=== PATIENT | female | born 1995 | race Caucasian/White ===

== ENCOUNTER 2020-12-06 11:34 | Emergency (ER) | payer OTHER, SELFPAY ==
[2020-12-06 11:36] VITALS: BP 131/80; PULSE 130; RESP 18; TEMP 36.7; O2SAT 98; BMI 20.7
--- NOTE | 2020-12-06 12:54 | ED_ITS ---
HPI - Psych General Chief Complaint: Psychiatric Symptoms Stated Complaint: depression Time Seen by Provider: 12/06/20 12:37 Source: patient and family Mode of arrival: ambulatory Limitations: no limitations History of Present Illness HPI Narrative: 25-year-old female with a past medical history of ADHD, depression here with complaints of depression for months. She denies any SI or HI. She tells me she is followed by her psychiatrist and is on multiple medications for this. She does not feel like they are helping. She tells me she is here to change her medications. She tells me she has not restarted her p sychiatrist to let them know what was going on. Denies substance use, physical complaints. Here with family MD complaint: feels depressed Related Data Allergies Allergy/AdvReac Type Severity Reaction Status Date / Time latex AdvReac Rash Verified 12/06/20 11:40 Review of Systems Review of Systems: Yes all other systems are reviewed and are negative Constitutional: Constitutional: Reports no additional constitutional complaints, Denies body ache(s), Denies chills, Denies fever(s), Denies headache(s) and Denies weakness Eyes: Eyes: Reports no additional eye complaints and Denies change in vision ENT: Reports system reviewed and no additional complaints, except as documented, Denies dizziness, Denies headache(s), Denies nasal congestion, Denies nasal discharge and Denies neck pain Cardiovascular: Cardiovascular: Reports no additional cardiovascular c omplaints, Denies chest pain, Denies leg edema and Denies dyspnea Respiratory: Respiratory: Reports no additional respiratory complaints, Denies cough and Denies dyspnea Gastrointestinal: Gastrointestinal: Reports no additional gastrointestinal complaints, Denies abdominal pain, Denies diarrhea, Denies nausea and Denies vomiting Genitourinary: Genitourinary: Reports no additional female genitourinary complaints and Denies urinary incontinence Musculoskeletal: Musculoskeletal: Reports no additional musculoskeletal complaints, Denies back pain, Denies arthralgias, Denies joint swelling, Denies neck pain, Denies numbness and Denies tingling Integumentary/Breasts: Skin/Breast: Reports system reviewed and no additional complaints, except as docu and Denies rash Neurologic: Reports system reviewed and no additional complaints, except as documented, Denies Abnormal speech present, Denies dizziness, Denies headache(s), Denies numbness, Denies tingling and Denies weakness Psychiatric: Psychiatric: Reports depression, Denies hallucinations, Denies homicidal ideation and Denies suicidal ideation [facility] Past Medical History Attestation statement: The following information was validated with the patient. Source: old records reviewed and nursing notes reviewed Medical History No known health problems Social History Social History Alcohol intake: current Alcohol intake frequency: holidays/special occasions only Patient Tobacco Use Status: Never used Tobacco Use of substances other than those prescribed or required for medical reasons: No Advance Directives: No Advance Directives Information Provided: Yes Patient : No Physical Exam Vital Signs: Vital Signs: Last Vital Signs Temp 99.0 F 12/06/20 14:35 Pulse 105 H 12/06/20 14:35 Resp 17 12/06/20 14:35 BP 138/76 12/06/20 14:35 Pulse Ox 100 12/06/20 14:35 Body Mass Index 20.7 Const: General: cooperative, healthy appearing, comfortable and no acute distress Orientation/consciousness: patient oriented x3 Limitations: no limitations HENMT: Head: Yes normal to inspection Ears: hearing grossly normal bilaterally General nose exam: Normal external nose present Face and sinus: Yes normal facial exam Mouth: Normal oral and palatal mucosa present Throat: Yes posterior oropharynx normal Eyes: General: appearance normal, both eyes and all related structures Pupils: Equal, round and reactive pupils present Neck: Neck: Yes normal visual inspection Chest: Chest palpation & inspection: normal inspection of the chest Resp: Effort & Inspection: normal respiratory effort Auscultation: clear to auscultation bilaterally Cardio: Rate: tachycardic Rhythm: regular rhythm Peripheral pulses: Peripheral pulses 2+ throughout GI: Inspection: Yes normal to inspection Palpation (GI): Soft to palpation and nontender Auscultation: normal bowel sounds Back/Spine/Pelvis: Thoracic/Lumbar Spine: thoracic and lumbar spine normal to inspection Skin: General skin exam: no rashes or lesions noted Neuro: General: patient oriented x3, no focal motor deficits and normal sensation to monofilament Cranial nerves: Yes Equal, round and reactive pupils present Cognition (Neuro): normal cognition Speech: No Abnormal speech present Gait exam (Neuro): Normal gait present Motor exam (neuro): 5/5 motor strength present throughout Extrem: General: Yes normal to inspection, Yes no pedal edema and Yes no calf tenderness Course Course Course Narrative: 25-year-old female here with longstanding history of depression with complaints of depression and feeling like her medications are not helping. She tells me she is here because she wants to change her medications that she is currently taking although has not reach out to her psychiatrist who prescribes the medications. No suicidal thoughts. No physical complaints. No substance use. No concern for acute ingestion or trauma. I did explain to the patient that we typically do not change psychiatric medications from the emergency department. I did discuss the patient that she should reach out to her psychiatrist for follow-up appointment and discuss her concerns. I offered for her to speak to our certified social workers in health care here and she accepted this. 1600-patient spoke to [place] from care team. Plan to referral for partial hospitalization Discharge Plan Discharge Clinical Impression: Depression Patient Disposition: Home, Self-Care Instructions: Depression (ED) Additional Instructions: You have been referred to partial Referrals: Physician,None [Primary Care Provider] - 2 days
[2020-12-06 14:35] VITALS: BP 138/76; PULSE 105; RESP 17; TEMP 37.2; O2SAT 100
== END 2020-12-06 16:25 | disposition home or self-care (01) ==
PROVIDERS: Emergency Provider Emergency Medicine Emergency Medical Services
DX: F32.9 Major depressive disorder, single episode, unspecified (principal); F90.9 Attention-deficit hyperactivity disorder, unspecified type
CPT/HCPCS: 99284

== ENCOUNTER 2020-12-08 03:14 | Emergency (ER) | payer OTHER, SELFPAY ==
[2020-12-08 03:58] VITALS: BP 149/93; PULSE 90; RESP 18; TEMP 37.2; O2SAT 98; BMI 20.7
[2020-12-08 04:18] LABS: MANUAL DIFF FLAG NO
[2020-12-08 04:20] LABS: Basophils Absolute Auto 0.1 X10*3/uL (0.0-0.2); Basophils Percent Auto 1.4 % (0-2); Eosinophils Absolute Auto 0.1 X10*3/uL (0.0-0.4); Eosinophils Percent Auto 2.5 % (0-4); Hematocrit 38.8 % (37-47); Imm Gran Abs Auto 0.02 X10*3/uL (0.00-0.03); Imm Gran Pct Auto 0.4 % (0.0-0.4); Lymphocytes Absolute Auto 1.1 X10*3/uL (1.2-4.9); Lymphocytes Percent Auto 19.5 % (20-40); Mean Corpuscular HGB Conc 33.5 g/dl (31.0-35.0); Mean Corpuscular Hemoglobin 31.6 pg (27.0-33.0); Mean Corpuscular Volume 94.2 fL (80-98); Mean Platelet Volume 9.5 fL (9.4-12.3); Monocytes Absolute Auto 0.6 X10*3/uL (0.1-1.2); Monocytes Percent Auto 9.9 % (2-11); Neutrophils Absolute Auto 3.7 X10*3/uL (2.0-8.3); Neutrophils Percent Auto 66.3 % (45-73); Platelet Count 311 X10*3/uL (160-400); Red Blood Count 4.12 X10*6/uL (4.20-5.50); Red Cell Distribution Width 13.7 % (11.0-16.0); White Blood Count 5.6 X10*3/uL (4.8-10.8)
[2020-12-08 04:47] LABS: Ethanol 188 mg/dL
[2020-12-08 04:49] LABS: Anion Gap 18 (12-20); Blood Urea Nitrogen 6 mg/dL (9-16); Carbon Dioxide 21 mmol/L (22-29); Chloride 107 mmol/L (96-108); Creatinine Clr Calc Pharmacy 119.1; Estimated Glomerular Filt Rate > 60; Glucose Random 85 mg/dL (60-115); Potassium 3.9 mmol/L (3.3-5.1); Sodium 142 mmol/L (135-145)
[2020-12-08 05:02] LABS: HCG Quantitative < 2 mIU/mL
--- NOTE | 2020-12-08 05:34 | ED_ITS ---
HPI - Alcohol General Chief Complaint: ETOH/Substance Use Stated Complaint: Agressive, drunk, was here 12/06 Time Seen by Provider: 12/08/20 04:01 History of Present Illness HPI narrative: Patient is a 25-year-old female long history of alcohol abuse. Patient is sent in by family because she was grossly intoxicated. Patient initially a plan for her to get a partial hospitalization on an outpatient basis. Family felt patient is unsafe to be at home center in for further evaluation. She denies any suicidal homicidal ideation. No chest pain or shortness breath no dizziness no nausea no vomiting no cough no congestion. Related Data Allergies Allergy/AdvReac Type Severity Reaction Status Date / Time latex AdvReac Rash Verified 12/06/20 11:40 Review of Systems Review of Systems: Constitutional: No Weight loss, No Fever, No Chills, No Night Sweats, No Fatigue, No Malaise ENT/Mouth: No Hearing loss, No Ear Pain, No Nasal Congestion, No Sinus Pain, No Hoarseness, No sore throat, No Rhinorrhea, No Swallowing Difficulty Eyes: No Eye Pain, No Swelling, No Redness, No Foreign Body, No Discharge, No Vision Changes Cardiovascular: No Chest Pain, No SOB, No Dyspnea on Exertion, No Orthopnea, No Edema, No Palpitations Respiratory: No Cough, No Sputum, No Wheezing, No Smoke Exposure, No Dyspnea Gastrointestinal: Negative Nausea, No Vomiting, No Diarrhea, No Constipation, No abdominal Pain, No Hematochezia, No Melena Genitourinary: no irregular bleeding, No Dysuria, No Urinary Frequency, No Hematuria, No Urinary Incontinence, No Urgency, No Flank Pain, No Urinary Flow Changes, No Hesitancy Musculoskeletal: No joint pain, No Myalgias, No Joint Swelling Skin: No Skin Lesions, No rash Neuro: No Weakness, No Numbness, No Paresthesias, No Loss of Consciousness, No Dizziness, No Headache Psych: No Anxiety/Panic, No Depression, No SI/HI/AH/VH, No Social Issues, Heme/Lymph: No Bruising, No Bleeding,No Lymphadenopathy Endocrine: No Polyuria, No Polydipsia, No Temperature Intolerance Yes U nobtainable due to mental condition PMFSH Past Medical History Medical History No known health problems Social History Social History Alcohol intake: current Alcohol intake frequency: holidays/special occasions only Patient Tobacco Use Status: Never used Tobacco Patient : No Physical Exam Vital Signs: Vital Signs: Last Vital Signs Temp 99.0 F 12/08/20 03:58 Pulse 90 12/08/20 03:58 Resp 18 12/08/20 03:58 BP 149/93 H 12/08/20 03:58 Pulse Ox 98 12/08/20 03:58 Body Mass Index 20.7 Appearance: Alert. Oriented X3. No acute distress. Eyes: Pupils equal, round and reactive to light. ENT: Pharynx normal. Neck: Normal inspection. Neck supple. No lymph nodes noted. No crepitus CVS: Normal heart rate and rhythm. Pulses normal. Normal S1 and S2 Respiratory: No respiratory distress. Breath sounds normal. No Wheezing. No rales Abdomen: Soft and nontender. No rigidity. No distention. good BS x4 Skin: Skin warm and dry. Normal skin color. Normal skin turgor. Extremities: No lower extremity edema. Neurovascular intact to all extremities. No Lacerations. No Rash Neuro: Oriented X 3. No motor deficit. No sensory deficit. Moving all exter mities. No slurred speech MDM - Alcohol MDM Narrative Medical decision making narrative: Patient well-appearing no acute distress. Alcohol was 188. Awaiting sobering. Will get care team involved in maximizing patient's care. Differential Diagnosis Differential diagnosis: Likely alcohol dependence Lab Data Result diagrams: 12/08/20 04:14 12/08/20 04:14 Labs: Lab Results 12/08/20 12/08/20 12/08/20 Range/Units 04:14 04:14 04:14 WBC 5.6 (4.8-10.8) X10*3/uL RBC 4.12 L (4.20-5.50) X10*6/uL Hgb 13.0 (12.0-16.0) g/dl Hct 38.8 (37-47) % MCV 94.2 (80-98) fL MCH 31.6 (27.0-33.0) pg MCHC 33.5 (31.0-35.0) g/dl RDW 13.7 (11.0-16.0) % Plt Count 311 (160-400) X10*3/uL MPV 9.5 (9.4-12.3) fL Immature Gran % (Auto) 0.4 (0.0-0.4) % Neut % (Auto) 66.3 (45-73) % Lymph % (Auto) 19.5 L (20-40) % Sequoyah % (Auto) 9.9 (2-11) % Eos % (Auto) 2.5 (0-4) % Baso % (Auto) 1.4 (0-2) % Lymph # (Auto) 1.1 L (1.2-4.9) X10*3/uL Sequoyah # (Auto) 0.6 (0.1-1.2) X10*3/uL Eos # (Auto) 0.1 (0.0-0.4) X10*3/uL Baso # (Auto) 0.1 (0.0-0.2) X10*3/uL Abs Immat Gran (auto) 0.02 (0.00-0.03) X10*3/uL Absolute Neuts (auto) 3.7 (2.0-8.3) X10*3/uL Absolute Nucleated RBC 0.000 (0.0-0.012) X10*3/uL Nucleated RBC % (auto) 0.0 (0.0-0.2) /100WBC Sodium 142 (135-145) mmol/L Potassium 3.9 (3.3-5.1) mmol/L Chloride 107 (96-108) mmol/L Carbon Dioxide 21 L (22-29) mmol/L Anion Gap 18 (12-20) BUN 6 L (9-16) mg/dL Creatinine 0.73 (0.5-1.4) mg/dL Estim Creat Clear Calc 119.1 Estimated GFR > 60 Random Glucose 85 (60-115) mg/dL Calcium 9.0 (8.4-10.2) mg/dL Beta HCG, Quant mIU/mL Ethyl Alcohol 188 mg/dL 12/08/20 Range/Units 04:14 WBC (4.8-10.8) X10*3/uL RBC (4.20-5.50) X10*6/uL Hgb (12.0-16.0) g/dl Hct (37-47) % MCV (80-98) fL MCH (27.0-33.0) pg MCHC (31.0-35.0) g/dl RDW (11.0-16.0) % Plt Count (160-400) X10*3/uL MPV (9.4-12.3) fL Immature Gran % (Auto) (0.0-0.4) % Neut % (Auto) (45-73) % Lymph % (Auto) (20-40) % Sequoyah % (Auto) (2-11) % Eos % (Auto) (0-4) % Baso % (Auto) (0-2) % Lymph # (Auto) (1.2-4.9) X10*3/uL Sequ[place]ah # (Auto) (0.1-1.2) X10*3/uL Eos # (Auto) (0.0-0.4) X10*3/uL Baso # (Auto) (0.0-0.2) X10*3/uL Abs Immat Gran (auto) (0.00-0.03) X10*3/uL Absolute Neuts (auto) (2.0-8.3) X10*3/uL Absolute Nucleated RBC (0.0-0.012) X10*3/uL Nucleated RBC % (auto) (0.0-0.2) /100WBC Sodium (135-145) mmol/L Potassium (3.3-5.1) mmol/L Chloride (96-108) mmol/L Carbon Dioxide (22-29) mmol/L Anion Gap (12-20) BUN (9-16) mg/dL Creatinine (0.5-1.4) mg/dL Estim Creat Clear Calc Estimated GFR Random Glucose (60-115) mg/dL Calcium (8.4-10.2) mg/dL Beta HCG, Quant < 2 mIU/mL Ethyl Alcohol mg/dL
--- NOTE | 2020-12-08 07:05 | PC.NURSE ---
Patient is asleep in bed in no distress. respirations are even and nonlabored
[2020-12-08 08:19] VITALS: BP 109/49; PULSE 133; RESP 18; O2SAT 97
--- NOTE | 2020-12-08 10:00 | PC.NURSE ---
Patient lying in bed in no distress. pt has been offered food but states she is not hungry. Patient is drinking water that is bedside
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
--- NOTE | 2020-12-08 11:32 | PC.NURSE ---
REPORT TO LARON MCALLISTER IN POD
--- NOTE | 2020-12-08 12:35 | PC.NURSE ---
Patient moved from the ED to [facility] for comfort and privacy. Patient alert and oriented, calm and cooperative and basic care needs met. Patient was seen by Care team and is currently a bed search. Patient aware of the plan and agreeable at this time.
[2020-12-08 13:40] LABS: COVID-19 Test Negative (Negative)
[2020-12-08 14:00] VITALS: PULSE 77; RESP 16
--- NOTE | 2020-12-08 15:11 | PC.NURSE ---
Medication list obtained from family who brought in patients medications in order to obtain accurate med rec.
[2020-12-08 19:23] VITALS: BP 156/82; PULSE 118; RESP 18; TEMP 36.3; O2SAT 99
[2020-12-08] MEDS: LORazepam 1 MG TABLET PO (19:33)
[2020-12-09 00:38] VITALS: BP 140/91; PULSE 102; RESP 19; TEMP 37; O2SAT 99
--- NOTE | 2020-12-09 07:14 | PC.NURSE ---
patient here seeking a detox/dual program, patient appears asleep at present
--- NOTE | 2020-12-09 07:17 | PC.NURSE ---
patient appears in no distress at present asking for tylenol for BOLAÑOS
[2020-12-09] MEDS: Ibuprofen 600 MG TABLET PO (07:27)
[2020-12-09 09:06] VITALS: BP 154/90; PULSE 96; RESP 18; TEMP 36.9; O2SAT 98
== END 2020-12-09 12:08 ==
PROVIDERS: Emergency Provider Emergency Medicine Emergency Medical Services
DX: F10.129 Alcohol abuse with intoxication, unspecified (principal); Y90.6 Blood alcohol level of 120-199 mg/100 ml; I10 Essential (primary) hypertension; R51.9 Headache, unspecified; Z20.822 Contact with and (suspected) exposure to COVID-19
CPT/HCPCS: 36415; 80048; 82077; 84702; 85025; 87635; 96360; 99285

== ENCOUNTER 2021-01-01 10:45 | Outpatient (RCR) | payer OTHER, SELFPAY ==
[2020-12-22 11:49] VITALS: BMI 20.7
--- NOTE | 2020-12-22 14:10 | PC.ADMIT ---
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 Patient plans on returning to [place] in late January. She was recently hospitalized at [facility] d/t mood instability. Prior to hospitalization patient's friends were concerned about her and did a wellness check on patient which prompted a crisis evaluation. Patient was evaluated and was admitted to [facility]. Patient was DX with Bipolar II d/o along with DX of PTSD and ETOH use disorder, moderate. Requested records from [facility] for more information. Patient presents with depressed mood and affect. Denied SI. Gave verbal permission to email her a copy of her safety plan. Patient reports she was diagnosed with Covid in mid to late August and since she had to quarantine she drank a bottle of wine on most days for 17 days as there was nothing else to do. Patient reported she has been home living with her mother since the beginning of November she drinks 1- 4 drinks, 2-3 days a week with friends. Patient appeared to have little insight regarding her ETOH use. Emailed patient, with patient's permission, educational information about mental and physical effects of heavy ETOH use. Patient appears to minimize effects of ETOH however did state when she consumes ETOH she has suicidal thoughts. Medications reconciled with patient and patient's pharmacy. Patient reports taking medications as prescribed.
--- NOTE | 2020-12-22 14:26 | P.HPPSP_ITS ---
HPI Chief Complaint: MDD, PTSD, ADHD Sources of Information: patient interviewed, chart reviewed and crisis/core team assessment reviewed HPI Subjective Notes: Bah Warning Guardianship: No Medical Problems Affecting Mental Status: No Narrative: Lore is a 25-year-old single, female, who was referred to [facility] by the CARE team. she had presented to this facility ED, after her friends had called asking for a wellness check as she had reported she was struggling. Patient subsequently presented again, and was admitted IPLOC at [facility] due to SI with a plan to overdose. She was admitted from 12/09/20 - 12/14/20. Patient reports a relationship break-up in the fall which triggered a depressive episode. She has expressed having depression and anxiety, fleeting hopelessness and helplessness passive SI with no plan or intent. Expresses guilt, irritability, anhedonia, poor appetite, low energy. 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 Patient reports growing up with both parents, until their divorce when she was in 4th grade. She says that she then stayed with her mother. She states that she does see her father sometimes, and does report a strained relationship with her mother. She does report having a supportive network of several friends. Patient met all developmental milestones as expected. 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 She denies any previous inpatient level of care admissions, any detox admissions, or [facility] programs. She does have outpatient providers both therapy and prescriber, that she continues to meet virtually. She is currently unemployed, as her employment is through graduate program. She was recently diagnosed with bipolar 2 disorder while inpatient at [facility]. She had been started on medication Lamictal, received 25 mg daily times 14 days, reports it was recently increased to 50 mg daily, yesterday. She also receives hydroxyzine, guanfacine, and Wellbutrin. She states that she was diagnosed with depression after college, and has tried multiple medications. She does report Wellbutrin and duloxetine, cannot remember the other meds. States that the duloxetine caused her to dissociate . Patient does have a history of drinking alcohol, but does not report that this is any type of a problem at this time. She denies any intent or plan to harm herself or anyone else, and states that she feels safe. Dismissive at times, states that she is here at the urging / insistence of her mother. Past Psychiatric History: recent IPLOC at [facility], d/c was 12/14/20. No other history of IPLOC, PHP. Has had therapist X2 years, psych prescriber X1 year. Medical Evaluation Reviewed: Yes FOR[facility]LY [facility], [facility] Medical History No known health problems Family History: Familial history depression and bipolar 2. Reports father is an alcoholic, in long-term sobriety. No suicidality in family. Social History: Lives in [place], where she is enrolled in PhD program. Currently staying with mother and step-father due to exacerbation of depressive symptoms, recent dx of Bipolar II. Describes relationship with mother as contentious. Describes relationship with step-father supportive, has two friends that are supportive. 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 Substance History: nicotine: Vapes daily. Marijuana: CBD gummies occasional, last use 12/14/2020. Alcohol: Drinks beer and wine up to 4 days a week, with amounts ranging from 1 beer to a bottle of wine. Minimizes alcohol use, states that it is not an issue at this time. did state that it could become a problem. Diagnostics Vital Signs (24Hr): Body Mass Index 20.7 Meds/Allergies Allergies Allergies Allergy/AdvReac Type Severity Reaction Status Date / Time latex AdvReac Rash Verified 12/06/20 11:40 Mental Status Exam Mental Status Exam Narrative: Well-developed, well-nourished female, appropriately groomed. Appears stated age. No visible distress. Did appear anxious and irritable but cooperative. Patient Appearance: Well Grooomed Patient Orientation: Person, Place, Time and Situation Level of Consciousness: Awake, Appropriate and Alert Patient Behavior: Cooperative, Anxious (anxious, irritable at times. ) and Good Eye Contact Mood Description: Appropriate, Depressed and Anxious Affect Description: Depressed and Anxious Patient Cognition Impaired: No Ability to Follow Directions: Excellent Speech Pattern: Clear Memory Description: Intact Hallucinations: None Delusions: Not Present Thought Process: Intact Thought Content: positive for Intact Depressive Symptoms: Increased Anxiety, Increased Irritability, Feelings of Worthlessness, Hopelessness, Feelings of Guilt and Thoughts of /Suicide (passive, fleeting, no intent or plan. ) Judgement: Fair Judgement and Insight: Judgment and insight fair. Displays little insight into substance use disorder, namely alcohol. Assessment & Plan Assessment & Plan (1) Bipolar 2 disorder: Status: Acute Code(s): F31.81 - Bipolar II disorder Assessment and Plan: Patient recently diagnosed with bipolar disorder, and was started on lamotrigine titration schedule. Reviewed side effects and dosing schedule with patient. Patient also prescribed Wellbutrin XL, guanfacine. PLAN: Will continue to monitor, as patient was increased by outpatient provider yesterday to 50 mg daily x2 weeks. No med changes needed. Will follow-up in 1 week, earlier if needed. (2) Post-traumatic stress disorder, unspecified: Status: Acute Code(s): F43.10 - Post-traumatic stress disorder, unspecified Assessment and Plan: Will continue to assess and provide support as needed. No medication changes, see above. (3) Alcohol use disorder, moderate, dependence: Status: Acute Code(s): F10.20 - Alcohol dependence, uncomplicated Assessment and Plan: Patient was offered medications to assist with alcohol use disorder and declined. Will continue to assess and offer resources if requested. Patient educated on: diagnosis, medication risk/benefits and therapeutic strategies Informed Consent: understands Reason for continued partial hosp. stay Substantial Risk for: inability to function and med/psych decompensation Certification I certify that partial hospital treatment is medically necessary due to the symptoms and problems resulting from the patient's mental illness and the failure to treat the patient at the partial hospital level of care would likely result in the patient requiring inpatient psychiatric care which could not be prevented at a less intensive level of care. Telehealth Telehealth Location of provider rendering services: practice address Location of patient: address on file Patient Identification confirmed using: Name, : Yes Telehealth method: video Patient verbally consented to treatment: Yes Patient verbally consented to billing insurance company: Yes Patient informed of any privacy concerns related to visit: Yes Time spent with patient (mins): 45
--- NOTE | 2020-12-24 14:54 | PC.NURSE ---
I attempted to call pt. The call went straight to voicemail without ringing, then gave a message that the mailbox is full so I was unable to leave a message.
--- NOTE | 2020-12-24 15:12 | PC.NURSE ---
Pt called back and I spoke with her about scheduled and how program is going. She reiterated not wanting to be in this sort of treatment right now, but said she does like the program is trying to accept having to be in it. She said she has been staying sober when I asked her. I gave her online resources for support groups (in the rooms, [facility], and support groups central). She requested a shorter treatment stay. She agreed to discharge on 01/01, and I let her know she can stay longer if needed when the time comes.
--- NOTE | 2020-12-31 15:06 | HO.PHPPROGNO ---
Subjective Subjective Date of Service: 12/31/20 Reason For Visit: MDD, PTSD, ADHD Subjective Notes: Bah Warning Guardianship: No Medical Problems Affecting Mental Status: No Interim History: Lore reports that her mood is pretty good today. Her Lamictal was increased to 50 mg daily 1 week ago by her outpatient provider. She states that she meet with him again soon, and that he will continue titration up to 100 mg at that time. She denies any type of safety concerns today, and feels that her bipolar disorder is beginning to be more stable, with less depressive symptoms noted. She believes this is also due to the Wellbutrin. she would like to keep medications at current doses, and will speak to her outpatient provider regarding increasing the Lamictal going forward. No side effects reported. She was concerned about control, and asked if this could possibly interfere with her medications. We did discuss the role of oral contraceptives and the potential for decreased lamotrigine levels, and the possibility that an adjustment to the maintenance dose may be needed at some point. She was advised to discuss this more fully with her outpatient provider, as she has only just begun lamotrigine recently, and has been taking oral contraceptives for some time. She has begun reading several books regarding bipolar disorder, including a workbook with exercises and assignments to help understand that illness along with developing coping skills to help manage it. She states that she is finding these useful. We also discussed her alcohol use, she states she is refraining while in program. We discussed cravings, and resources that are available if she decides she needs further assistance. She is not interested in any type of medication for alcohol use disorder at this time, she does report that she has been attending 12 step meetings online sporadically. She is aware that they are available if needed, we also discussed other options such as medications, [facility] recovery, [facility], women's recovery, etc. No refills needed. No safety concerns at this time. Medication Compliance: Yes Side effects from medications: No (no rash noted / reported) Attending Groups: Yes Review of Systems Review of Systems A full review of systems was completed and was negative with the exception of pertinent positives noted in history of presenting illness. Patient denies any type of extreme mood lability or restriction, and none were noted. Yes all other systems are reviewed and are negative Eyes: Reports as per HPI Reports as per HPI Psychiatric: Reports no additional psychiatric complaints Mental Status Exam Mental Status Exam Narrative: Well-developed, well-nourished female, in no apparent distress. Appears stated age. Sitting up in chair, good eye contact, appropriate during the encounter. Patient Appearance: Well Grooomed and Appropriate Patient Orientation: Person, Place, Time and Situation Level of Consciousness: Awake, Appropriate and Alert Patient Behavior: Appropriate and Cooperative Mood Description: Appropriate, Depressed and Anxious Affect Description: Appropriate ( No mood lability or constriction noted during encounter.), Depressed and Anxious Patient Cognition Impaired: No Ability to Follow Directions: Excellent Speech Pattern: Clear and Appropriate Memory Description: Intact Hallucinations: None Delusions: Not Present Thought Process: Intact, Goal Oriented and Linear Thought Content: positive for Intact and positive for Logical Depressive Symptoms: Increased Anxiety Judgement: Good Judgement and Insight: Judgment and insight appear overall to be grossly intact at this time. Patient is help seeking, information seeking. Diagnostics Vital Signs (24Hr): Body Mass Index 20.7 Assessment & Plan Assessment & Plan (1) Bipolar 2 disorder: Status: Acute Code(s): F31.81 - Bipolar II disorder Assessment and Plan: Patient reports feeling mood is beginning to be more stabilized, states depressive symptoms are not as severe as they were several weeks ago. Patient reports she appears to be doing well with current medications, including Lamictal titration. She states she is working with outpatient provider regarding dose increases. States she does not need any refills at this time. PLAN: Continue current medications with no changes. Follow up in one week, sooner if needed. (2) Alcohol use disorder, moderate, dependence: Status: Acute Code(s): F10.20 - Alcohol dependence, uncomplicated Assessment and Plan: Patient reports she is abstaining from alcohol while she is in program. She does report though that I want a glass of wine . We discussed cravings, and relapse prevention strategies. We also discussed medications for alcohol use disorder, as well as various 12 step and other types of support groups. patient stated that she understood, and would seek out assistance if needed. She does report that she has attended several online 12 step meetings, and has found them useful. PLAN: Continue to offer education and resources as needed regarding AUD. Patient educated on: diagnosis, medication risk/benefits and therapeutic strategies Informed Consent: understands Reason for contiued partial hosp. stay Substantial Risk for: inability to function and med/psych decompensation Certification I certify that partial hospital treatment is medically necessary due to the symptoms and problems resulting from the patient's mental illness and the failure to treat the patient at the partial hospital level of care would likely result in the patient requiring inpatient psychiatric care which could not be prevented at a less intensive level of care. Greater than 50% of the session was spent on counseling and/or coordination of care Discharge Plan Discharge Attending provider: Bob Alvarado Medications: No Action levonorgestrel-ethinyl estrad [Altavera (28)] 0.15-0.03 mg Tablet 1 tab PO BEDTIME RF: 0 hydroxyzine HCl 50 mg Tablet 50 mg PO Q4H PRN (Reason: Anxiety) RF: 0 lamotrigine [Lamictal] 25 mg Tablet 50 mg PO DAILY RF: 0 bupropion HCl [Wellbutrin XL] 300 mg Tablet Extended Release 24 Hr 300 mg PO QAM RF: 0 guanfacine 1 mg Tablet 1 mg PO DAILY RF: 0 Stand Alone Forms: Patient Portal Discharge page Telehealth Telehealth Location of provider rendering services: practice address Location of patient: address on file Patient Identification confirmed using: Name, : Yes Telehealth method: video Patient verbally consented to treatment: Yes Patient verbally consented to billing insurance company: Yes Patient informed of any privacy concerns related to visit: Yes Time spent with patient (mins): 15
--- NOTE | 2021-01-01 10:47 | PC.NURSE ---
Patient is scheduled to be discharged from the program today. Reviewed patient medications with patient. Patient reports taking medications as prescribed. Medication education provided. Denied any safety issues. Patient reports feeling good about discharge today.
--- NOTE | 2021-01-01 15:55 | PC.NURSE ---
I called and left a message for Albania Pulido at [facility] in [place] ([phone]). I informed her of pt's discharge from [facility] today, and of what progress was made in [facility].
== END 2021-01-04 08:39 | disposition home or self-care (01) ==
LOC: HO.PHPA 10:45
PROVIDERS: Visit Provider Psychiatry & Neurology Psychiatry
DX: F31.81 Bipolar II disorder (principal); F43.10 Post-traumatic stress disorder, unspecified; F10.20 Alcohol dependence, uncomplicated; Z79.899 Other long term (current) drug therapy
CPT/HCPCS: 90791; 90853

== ENCOUNTER 2022-10-21 07:23 | Outpatient (REF) | payer BC, SELFPAY ==
[2022-10-21 11:58] LABS: Hemoglobin 11.8 g/dl (12.0-16.0); Mean Corpuscular HGB Conc 31.9 g/dl (31.0-35.0); Mean Corpuscular Hemoglobin 28.3 pg (27.0-33.0); Mean Corpuscular Volume 88.7 fL (80.0-98.0); Mean Platelet Volume 12.4 fL (9.4-12.3); Platelet Count 283 X10*3/uL (160-400); Red Blood Count 4.17 X10*6/uL (4.20-5.50); Red Cell Distribution Width 12.9 % (11.0-16.0); White Blood Count 5.1 X10*3/uL (4.8-10.8)
[2022-10-21 11:59] LABS: Appearance Urine Cloudy; Color Urine Yellow; Glucose Urine UA Negative (Negative); Leukocyte Esterase Urine Small (1+) (Negative); Nitrite Urine Negative (Negative); Specific Gravity - Urine 1.025 (1.005-1.025); UMIC TRIGGER UA YES; Urine Blood Negative (Negative); Urine Ketones Negative (Negative); Urine Protein Trace mg/dL (Neg-Trace)
[2022-10-21 12:16] LABS: Bacteria Urine 2+ (None Seen)
[2022-10-21 12:51] LABS: Alanine Aminotransferase 12 U/L (0-31); Albumin Level 4.2 g/dL (3.5-5.0); Alkaline Phosphatase 56 U/L (39-117); Anion Gap 13 (12-20); Aspartate Amino Transferase 13 U/L (5-31); Bilirubin Total 0.5 mg/dL (0.0-1.0); Blood Urea Nitrogen 9 mg/dL (9-16); Calcium 9.1 mg/dL (8.4-10.2); Carbon Dioxide 23 mmol/L (22-29); Chloride 108 mmol/L (96-108); Cholesterol 193 mg/dL; Estimated Glomerular Filt Rate > 60; Glucose Fasting 87 mg/dL (60-99); HDL Cholesterol 60 mg/dL; LDL Cholesterol Calculated 117 mg/dl; Potassium 3.8 mmol/L (3.3-5.1); Sodium 140 mmol/L (135-145); TSH reflex Free T4 0.68 uIU/mL (0.32-4.0); Total Protein 6.5 g/dL (6.5-8.0); Triglycerides 84 mg/dL
== END 2022-10-21 07:24 | disposition home or self-care (01) ==
LOC: HO.WFDLDS 07:23
PROVIDERS: Visit Provider Hospitalist
DX: Z00.00 Encounter for general adult medical examination without abnormal findings (principal)
CPT/HCPCS: 36415; 80053; 80061; 81001; 84443; 85027

== ENCOUNTER 2023-08-23 09:14 | Outpatient (AMB) | payer BC, SELFPAY ==
[2023-08-23 09:20] VITALS: BP 104/66; PULSE 85; RESP 13; TEMP 36.4; O2SAT 99; BMI 21.2
--- NOTE | 2023-08-23 09:20 | A.OFFPC_ITS ---
Vital Signs 08/23/23 09:20 Height 5 ft 9 in Weight 143 lb 4 oz BMI 21.2 BP 104/66 Blood Pressure Location Rt brachial Position Sitting Respiration 13 Pulse 85 Pulse Source Pulse Oximeter Temp 97.5 F Temp Source Temporal Artery Scan Pulse Oximetry (%) 99 Oxygen Delivery Method Room Air Intake Visit Reasons: Transfer care Intake Note: Patient would like to know if her new control will contradict with her Lamotrigine. Patient states that she has a few toe nails that are discolored and thicker that some of her other toenails that is causing concern. Nurse Examiner Required: No Accompanied by: Self / Same As Patient Allergies latex Adverse Reaction (Verified 08/23/23 09:26) Rash Medication List - Last Reconciled 08/23/23 by SOFIA Yates- hydroxyzine HCl 50 mg PO Q4H PRN lamotrigine (Lamictal) 50 mg PO DAILY norethindrone (contraceptive) 0.35 mg PO DAILY quetiapine 25 mg PO DAILY Tobacco use date assessed: 08/23/23 Dental Screening Dental Screen Date: 08/23/23 Did you have a dental visit in the last 12 months?: Yes Did you have a dental problem in the last 6 months where you did not have access to dental care?: No Was dental information given to patient?: Patient has dentist HPI HPI Comments History of Present Illness Details 28-year-old female with acne, seasonal a llergies, bipolar 2 disorder, PTSD, alcohol use disorder, eczema, migraines, GERD, MDD, ? ADHD inattentive type, anemia, onychomycosis Hospitalizations 2020 [facility] due to suic jerel ideation with a plan to overdose 2021 [facility] Psychiatry Counselor monthly Conformal Pad Former [facility] Health maintenance Pap 09/03/2018 within normal limits Vaccines reports UTD including flu Here today to [facility]. Does not need a pre-op for any reason. Was going to [facility] in [place]. Meds were being prescribed there. Last visit 4 months ago. Was drinking and referred there after hospitalization. Last drink apr 10, 2022. Requesting a new psychiatry referral for med management. Asked if I could refill her prescriptions as needed until she gets back in. I did advise her that this is something I can do. At this time she does not need any refills on her medications. 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 Combined estrogen pills caused migraine w/ aura. This was stopped 1 week ago. New RX for minipill. Would like referral to [facility] ORCHARD WORKER for routine care. [facility]. has not made appt yet. At the same time, only stopped ALEXX 1 week ago. NOt long enough to determine benefit. Skin - acne, active with Dermatology. Discolored toe nails, bilat feet, not all nails. Started > 1 year ago. Tried at home tx. No relief. Mini pill and Lamictal with no medication interactions. Surgeries: None Family hx: Maternal grandfather lung ca Paternal grandfather stomach ca Mom alive and well Dad alive and well Siblings - none PFSH Medical History Eczema Migraines Surgical History No pertinent past surgical history Family History Other Mental health disorder Substance abuse Social History Household Members: Family Housing: Apartment Alcohol intake: current Alcohol intake frequency: 3 or more drinks per day Patient Tobacco Use Status: Never used Tobacco Tobacco use type: Smokeless Tobacco e-Cigarette/Vaping Use: Former Use service: No Current occupational status: employed Current occupation: [employer] Current occupational exposures/hazards: No Cognitive needs: No Hearing needs: No Vision needs: No Questionnaire PHQ-9 Over the last 2 weeks, how often have you been bothered by any of the following problems? 1. Little interest or pleasure in doing things: not at all 2. Feeling down, depressed, or hopeless: several days 3. Trouble falling or staying asleep, or sleeping too much: not at all 4. Feeling tired or having little energy: several days 5. Poor appetite or overeating: not at all 6. Feeling bad about yourself - or that you are a failure or have let yourself or your family down: several days 7. Trouble concentrating on things, such as reading the newspaper or watching television: more than half the days 8. Moving or speaking so slowly that other people could have noticed. Or the opposite - being so fidgety or restless that you have been moving around a lot more than usual: not at all 9. Thoughts that you would be better off or of hurting yourself in some way: not at all Total score: 5 Depression Screening Interpretation: Positive Depression Screening Follow-up: Existing condition and In treatment Depression Screening Done: Yes 20336 - PHQ-9 Billing: Yes Source: Developed by Drs. Ash Payne, Cyndie Reeves, Amish Ring and colleagues, with an educational cedric from [employer]. Thrive Questionnaire Date Thrive assessed: 08/23/23 I am a: Patient What is your living situation today?: I have a steady place to live Within the past 12 months, did the food you bought not last and you didn't have the money to get more?: Never true Within the past 12 months, did you worry whether your food would run out before you got money to buy more?: Never true Do you have trouble paying for medicines?: No Do you have trouble getting transportation to medical appointments?: No Do you have trouble paying your heating and electricity bill?: No Do you have trouble taking care of your child, family member or friend?: No Do you have trouble with day-to-day activities such as bathing, preparing meals, shopping, managing finances, etc.?: No Are you currently unemployed and looking for a job?: No Are you interested in more education?: No Please select the resources that you would like help with: None Currently or been in a relationship where the following occur: no concerns reported THRIVE Score: 0 AUDIT C Alcohol Use Questionnaire (AUDIT-C) 1. How often do you have a drink containing alcohol?: Never 3. How often do you have six or more drinks on one occasion?: Never Total Score: 0 Score Reviewed/Action Taken: Yes TANNA-7 AMB Questionnaire TANNA-7 Date TANNA - 7 assessed: 08/23/23 Feeling nervous, anxious, or on edge: 1 = Several days Not being able to stop or control worryin = Several days Worrying too much about different things: 1 = Several days Trouble relaxin = More than half the days Being so restless that it is hard to sit still: 1 = Several days Becoming easily annoyed or irritable: 2 = More than half the days Feeling afraid as if something awful might happen: 1 = Several days Total TANNA-7 score (0-4 normal; 5-9 mild; 10-14 moderate; 15-21 severe): 9 Source: Developed by Drs. Ash Payne, Cyndie Reeves, Amish Ring and colleagues, with an educational cedric from [employer]. TANNA-7 Assessment Billing TANNA-7 Assessment Tool: TANNA-7 Assessment 55337 Review of Systems Const All systems reviewed & are unremarkable except as noted in HPI and below Physical exam (Primary Care) Vital Signs: Last Vital Signs Temp 97.5 F 08/23/23 09:20 Pulse 85 08/23/23 09:20 Resp 13 08/23/23 09:20 BP 104/66 08/23/23 09:20 Pulse Ox 99 08/23/23 09:20 Oxygen Delivery Method Room Air 08/23/23 09:20 BMI result Body Mass Index 21.2 Tobacco/Smoking Status: Tobacco use Status Tobacco use date assessed 08/23/23 08/23/23 09:31 Patient Tobacco Use Status Never used Tobacco 08/23/23 09:31 Tobacco use type Smokeless Tobacco 08/23/23 09:31 e-Cigarette/Vaping Use Former Use 08/23/23 09:31 PHQ-9: PHQ-9 Score PHQ-9: Total score 5 08/23/23 09:31 Depression Screening Interpretation: Positive Depression Screening Follow-up: Existing condition and In treatment Thrive Assessment: Date of Thrive Assessment Date Thrive assessed 08/23/23 08/23/23 09:31 Currently or been in a relationship where the following occur: no concerns reported Const Other: Awake alert oriented Sclera is nonicteric bilat Mucous membranes moist Regular rate and rhythm Lung sounds clear to auscultation bilat No hepatomegaly No edema bilateral lower extremities Onychomycosis toenails bilat worse on the right great toe nail Anxious yet cooperative Assessment and Plan Assessment & Plan (1) Bipolar 2 disorder: Comment: Currently managed on Lamictal and Seroquel. New referral for Psychiatry placed today. Active with a counselor seeing her monthly. I will manage her medications until she establishes care with a new Psychiatry provider Code(s): F31.81 - Bipolar II disorder (2) Alcohol use disorder, moderate, dependence: Comment: Sober since March of 2022.Currently managed on Lamictal and Seroquel. New referral for Psychiatry placed today. Active with a counselor seeing her monthly. I will manage her medications until she establishes care with a new Psychiatry provider Code(s): F10.20 - Alcohol dependence, uncomplicated (3) Post-traumatic stress disorder, unspecified: Comment: Currently managed on Lamictal and Seroquel. New referral for Psychiatry placed today. Active with a counselor seeing her monthly. I will manage her medications until she establishes care with a new Psychiatry provider Code(s): F43.10 - Post-traumatic stress disorder, unspecified (4) Cervical cancer screening: Code(s): Z12.4 - Encounter for screening for malignant neoplasm of cervix Plan: Referred to obstetrics gynecology physician at [place] for routine care (5) Screening, deficiency anemia, iron: Code(s): Z13.0 - Encounter for screening for diseases of the blood and blood-forming organs and certain disorders involving the immune mechanism Plan: Noted on labs in 2020 and 2022. Denies over signs of bleeding. We will check levels today (6) Screening for lipid disorders: Code(s): Z13.220 - Encounter for screening for lipoid disorders (7) Screening for thyroid disorder: Code(s): Z13.29 - Encounter for screening for other suspected endocrine disorder (8) Encounter for vitamin deficiency screening: Code(s): Z13.21 - Encounter for screening for nutritional disorder (9) Onychomycosis: Comment: Affecting toenails. Educated about the chronicity of this issue. Declined a podiatry referral. I have prescribed a topical agent to be used as directed. Code(s): B35.1 - Tinea unguium Plan This note is constructed using voice recognition software. While every effort has been made to ensure accuracy in american studies professor, still errors may have been included Sometimes, these errors may affect the content or meaning of the given sentence . Total time spent caring for the patient today was 60 minutes. This includes time spent before the visit reviewing the chart, time spent during the visit, and time spent after the visit on documentation patient had a syncopal episode while receiving a blood draw. No injury. Treated with ice pack, water and salty snack. She responded well. This provi madie had to respond and stayed with her until she was able to leave. This prolonged the amount of time patient facing. Encouraged to return to the office in about 2 months to follow up on chronic conditions and check in sooner if needed. Orders: Orders Comprehensive [place]. Panel Fast Today F10.20 - Alcohol dependence, uncomplicated, Z13.0 - Encounter for screening for diseases of the blood and blood-forming organs and certain disorders involving the immune mechanism, Z13.21 - Encounter for screening for nutritional disorder, Z13.220 - Encounter for screening for lipoid disorders, Z13.29 - Encounter for screening for other suspected endocrine disorder Lipid Panel Today F10.20 - Alcohol dependence, uncomplicated, Z13.0 - Encounter for screening for diseases of the blood and blood-forming organs and certain disorders involving the immune mechanism, Z13.21 - Encounter for screening for nutritional disorder, Z13.220 - Encounter for screening for lipoid disorders, Z13.29 - Encounter for screening for other suspected endocrine disorder TSH reflex Free T4 Today F10.20 - Alcohol dependence, uncomplicated, Z13.0 - Encounter for screening for diseases of the blood and blood-forming organs and certain disorders involving the immune mechanism, Z13.21 - Encounter for screening for nutritional disorder, Z13.220 - Encounter for screening for lipoid disorders, Z13.29 - Encounter for screening for other suspected endocrine disor madie Vitamin B12 and Folate Today F10.20 - Alcohol dependence, uncomplicated, Z13.0 - Encounter for screening for diseases of the blood and blood-forming organs and certain disorders involving the immune mechanism, Z13.21 - Encounter for screening for nutritional disorder, Z13.220 - Encounter for screening for lipoid disorders, Z13.29 - Encounter for screening for other suspected endocrine disorder IRON PROFILE Today F10.20 - Alcohol dependence, uncomplicated, Z13.0 - Encounter for screening for diseases of the blood and blood-forming organs and certain disorders involving the immune mechanism, Z13.21 - Encounter for screening for nutritional disorder, Z13.220 - Encounter for screening for lipoid disorders, Z13.29 - Encounter for screening for other suspected endocrine disorder Referrals Psychiatry Referral F10.20 - Alcohol dependence, uncomplicated, F31.81 - Bipolar II disorder, F43.10 - Post-traumatic stress disorder, unspecified BUSINESS AND SERVICES INSTRUCTOR Referral Z12.4 - Encounter for screening for malignant neoplasm of cervix Medications: New tretinoin 0.025% 1 appl topical BEDTIME 20 grams 0RF sneglrclah-ptdcwuprezs-dyuisdl 8-1-1 % 1 mL topical BID 30 days 15 mL 2RF spironolactone two tabs in the AM (100mg) 1 tab at HS (50mg) 50 mg PO BID 30 tabs 0RF Coding Level of Care Code Est Pt Level 5 (26734) Diagnoses Bipolar 2 disorder F31.81 Alcohol use disorder, moderate, dependence F10.20 Post-traumatic stress disorder, unspecified F43.10 Cervical cancer screening Z12.4 Screening, deficiency anemia, iron Z13.0 Screening for lipid disorders Z13.220 Screening for thyroid disorder Z13.29 Encounter for vitamin deficiency screening Z13.21 Onychomycosis B35.1 Additional Codes TANNA-7 Assessment Billing - TANNA-7 Assessment Tool: TANNA-7 Assessment 57853 ([id number])
== END 2023-08-23 10:29 | disposition home or self-care (01) ==
PROVIDERS: PCP Hospitalist; Visit Provider Nurse Practitioner Family
DX: F31.81 Bipolar II disorder (principal); F10.20 Alcohol dependence, uncomplicated; F43.10 Post-traumatic stress disorder, unspecified; Z13.0 Encounter for screening for diseases of the blood and blood-forming organs and certain disorders involving the immune mechanism; Z13.220 Encounter for screening for lipoid disorders; Z13.29 Encounter for screening for other suspected endocrine disorder; Z13.21 Encounter for screening for nutritional disorder; B35.1 Tinea unguium
CPT/HCPCS: 99215

== ENCOUNTER 2023-08-23 10:08 | Outpatient (REF) | payer BC, SELFPAY ==
[2023-08-23 12:28] LABS: Alanine Aminotransferase 19 U/L (0-31); Albumin Level 4.5 g/dL (3.5-5.0); Alkaline Phosphatase 63 U/L (39-117); Anion Gap 13 (12-20); Aspartate Amino Transferase 19 U/L (5-31); Bilirubin Total 0.6 mg/dL (0.0-1.0); Blood Urea Nitrogen 10 mg/dL (9-16); Calcium 9.9 mg/dL (8.4-10.2); Carbon Dioxide 26 mmol/L (22-29); Chloride 105 mmol/L (96-108); Cholesterol 224 mg/dL (<200); Estimated Glomerular Filt Rate > 60; Glucose Fasting 83 mg/dL (60-99); HDL Cholesterol 88 mg/dL (>40); Iron 150 mcg/dL (30-160); LDL Cholesterol Calculated 122 mg/dL (<100); Percent Iron Saturation 47 % (15-50); Potassium 3.9 mmol/L (3.3-5.1); Sodium 140 mmol/L (135-145); TSH reflex Free T4 0.51 uIU/mL (0.32-4.0); Total Iron Binding Capacity 318 mcg/dL (228-428); Total Protein 7.5 g/dL (6.5-8.0); Triglycerides 72 mg/dL (<150); Unsaturated Iron Binding 168 ug/dL
[2023-08-23 15:28] LABS: Folate 8.2 ng/mL (> or = 4.0); Vitamin B12 289 pg/mL (200-900)
== END 2023-08-23 10:09 | disposition home or self-care (01) ==
LOC: HO.WFDLDS 10:08
PROVIDERS: Visit Provider Nurse Practitioner Family
DX: Z13.220 Encounter for screening for lipoid disorders (principal); Z13.21 Encounter for screening for nutritional disorder; Z13.29 Encounter for screening for other suspected endocrine disorder; Z13.0 Encounter for screening for diseases of the blood and blood-forming organs and certain disorders involving the immune mechanism; F10.20 Alcohol dependence, uncomplicated
CPT/HCPCS: 36415; 80053; 80061; 82607; 82746; 83540; 84443

== ENCOUNTER 2023-10-18 10:26 | Outpatient (REF) | payer BC, SELFPAY ==
[2023-10-18 18:02] LABS: CT PCR NOT DETECTED (Not Detect.); NG PCR NOT DETECTED (Not Detect.)
[2023-10-19 13:18] LABS: BV Int Neg Control Negative (Negative); BV Int Pos Control Positive (Positive)
[2023-10-24 06:49] LABS: HPV mRNA E6/E7 rflx Not Detected (Not Detected)
== END 2023-10-18 10:27 | disposition home or self-care (01) ==
LOC: HO.LNP 10:26
PROVIDERS: PCP Hospitalist; Visit Provider Advanced Practice Midwife
DX: Z01.419 Encounter for gynecological examination (general) (routine) without abnormal findings (principal); Z20.2 Contact with and (suspected) exposure to infections with a predominantly sexual mode of transmission
CPT/HCPCS: 0353U; 87480; 87510; 87624; 87660; 88142

== ENCOUNTER 2023-10-18 10:26 | Outpatient (AMB) | payer BC, SELFPAY ==
[2023-10-18 10:35] VITALS: BP 108/60; BMI 20.7
--- NOTE | 2023-10-18 10:35 | MHC.OFFVIS ---
Vital Signs 10/18/23 10:35 Height 5 ft 9 in Weight 140 lb BMI 20.7 BP 108/60 Intake Visit Reasons: New patient Annual Agriculture Specialist Required: No Information Interpreted: non-clinical & clinical Arcade Game Technician: Arcade Game Technician Present (Nithin) Allergies latex Adverse Reaction (Verified 10/18/23 10:37) Rash Medication List - Last Reconciled 10/18/23 by Tonie Esquivel CNM jywiajsgwd-prnbyqpkyoz-atnkzdg 8-1-1 % 1 mL topical BID 30 days hydroxyzine HCl 50 mg PO Q4H PRN lamotrigine (Lamictal) 50 mg PO DAILY norethindrone (contraceptive) 0.35 mg PO DAILY quetiapine 25 mg PO DAILY spironolactone 50 mg PO BID tretinoin 0.025% 1 appl topical BEDTIME Is last menstrual period known: Yes Last menstrual period: 09/19/23 Post menopausal: No HPI HPI New patient Annual: Details: Patient is here for new obstetrics gynecology physician annual exam she says she is incredibly nervous not so much the exam for for any possible scary results she did have a history of an abnormal Pap past that was ASCUS with positive HPV so she is anxious and she tells herself that 'any bad result is not a reflection on her moral character,' but she does get very anxious. She has a boyfriend for about the last year. She is interested in getting tested for STIs. She is [facility] She was able to get them through a tele visit. She has a history of ocular migraines when she was on combination control pills in the past so that is why she is on the norethindrone. 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 [facility] Medical History Eczema Migraines Surgical History No pertinent past surgical history Family History Other Mental health disorder Substance abuse Social History (Reviewed 10/18/23 @ 10:39 by JUANITO Montenegro Household Members: Family Housing: Apartment Alcohol intake: current Alcohol intake frequency: 3 or more drinks per day Patient Tobacco Use Status: Never used Tobacco Tobacco use type: Smokeless Tobacco e-Cigarette/Vaping Use: Former Use service: No Current occupational status: employed Current occupation: [employer] Current occupational exposures/hazards: No Cognitive needs: No Hearing needs: No Vision needs: No Female Reproductive History Menstrual Age of Menarche: 13 Duration of menses: 3-5 days Date of last menstrual period: 09/19/23 control method: pills Total pregnancies: 0 Date of last pap smear: 09/03/18 (ASCUS +HPV) History of abnormal pap smear: Yes Physical Exam Vital Signs: Last Vital Signs BP 108/60 10/18/23 10:35 BMI result Body Mass Index 20.7 Const General: healthy appearing, comfortable, no acute distress, well developed and alert Nutritional Appearance: average body habitus Orientation/consciousness: patient oriented x3 Limitations: no limitations HEENT Head: Yes normocephalic Neck Neck: Yes normal visual inspection Thyroid: Thyroid normal Chest Chest palpation & inspection: normal inspection of the chest Breast/axilla inspection: normal inspection of the breasts and normal inspection of the axillae Breast/axilla palpation: normal palpation of the breasts and normal palpation of the axillae Resp Effort & Inspection: normal respiratory effort GI Inspection: Yes normal to inspection, No Abdominal wall edema and No distended Palpation (GI): Soft to palpation and nontender Other: Completely normal external exam and vaginal exam. Vaginal mucosa pink cervix nulliparous pink slightly friable with Pap uterus is small retroverted mobile nontender adnexa nontender good tone with Kegel. General: Yes bladder normal to palpation External Female Exam: normal external appearance and normal appearance of the urethra Speculum Exam - Vagina: normal appearance of the vagina, normal palpation and normal vaginal discharge Speculum Exam - Cervix: normal appearance of the cervix, normal palpation and nontender Bimanual exam- vagina & uterus: normal bimanual exam, normal palpation, uterine size normal, bladder normal to palpation, consistency normal, normal palpation, uterine mobility normal, uterine shape normal, No Cervical tenderness present, non-tender and no cervical motion tenderness Bimanual Exam- Adnexa, other: normal adnexae, no masses, normal and No adnexal tenderness Neuro General: patient oriented x3 Assessment & Plan Assessment & Plan (1) Well woman exam with routine gynecological exam: Code(s): Z01.419 - Encounter for gynecological examination (general) (routine) without abnormal findings Category: Medical (2) Cervical cancer screening: Comment: hx of ascus, pos hpv; pap done 10/18/23.(patient is sure that she got the full Gardasil series. She says her boyfriend is going to get vaccinated soon). Code(s): Z12.4 - Encounter for screening for malignant neoplasm of cervix Category: Medical Plan -----Discussed in this visit the following: healthy balanced diet, regular and consistent exercise, getting recommended health screens, doing the best she can for her particular health concerns, kegel exercises, pap smear screening and followup recommendations, mammography screening and SBE, normal changes in cycles in her life stage--- . Reviewed the usual screening tests reviewed the normal fear of finding out the something is 1 reviewed the testing for STIs and the there are treatments for just about all of them reviewed what testing is done would testing is not done since herpes and she is aware that most people had come in contact with so that is why we do not test. Reviewed her use of the control pills she is happy on these they are working well for her she is going to continue on them I prescribed another year's supply worth she had requested a year 1 prescription but it was not possible to input that into the system so it is 3 months with 3 or 4 refills. She is on the portal so can look for results there but we will send her a letter with Pap smear if she gets a call about any positive results I reviewed what they might possibly be and next steps that would be required so as to try to ameliorate her anxiety someone. Acknowledged the challenge of growing up with teaching that encourages some of us to feel extremely responsible for any possible negative results. RTC 1 year, labs when she wishes to get them. Orders: Orders Bacterial Vaginosis Panel Today Z11.3 - Encounter for screening for infections with a predominantly sexual mode of transmission Pap Smear Today Z12.4 - Encounter for screening for malignant neoplasm of cervix CT NG by PCR Today Z11.3 - Encounter for screening for infections with a predominantly sexual mode of transmission Medications: New norethindrone (contraceptive) 0.35 mg PO DAILY 84 tabs 4RF Coding Level of Care Code New Pt Prev Care 18-39yr([id number] Diagnoses Well woman exam with routine gynecological exam Z01.419 Cervical cancer screening Z12.4
== END 2023-10-18 11:47 | disposition home or self-care (01) ==
PROVIDERS: PCP Hospitalist; Visit Provider Advanced Practice Midwife
DX: Z01.419 Encounter for gynecological examination (general) (routine) without abnormal findings (principal); Z12.4 Encounter for screening for malignant neoplasm of cervix
CPT/HCPCS: 99385

== ENCOUNTER 2023-10-20 11:59 | Outpatient (AMB) | payer BC, SELFPAY ==
--- NOTE | 2023-10-20 12:07 | A.OFFPC_ITS ---
Vital Signs 10/20/23 12:08 Height 5 ft 9 in Weight 139 lb BMI 20.5 BP 104/60 Blood Pressure Location Lt brachial Position Sitting Pulse 76 Pulse Source Pulse Oximeter Pulse Oximetry (%) 100 Oxygen Delivery Method Room Air Intake Visit Reasons: routine fu Allergies latex Adverse Reaction (Verified 10/20/23 12:10) Rash Medication List - Last Reconciled 10/20/23 by Yoli Orellana, SIGHTER-BC jykocznebv-oafgurxgvkr-fzffoyo 8-1-1 % 1 mL topical BID 30 days hydroxyzine HCl 50 mg PO Q4H PRN lamotrigine (Lamictal) 50 mg PO DAILY norethindrone (contraceptive) 0.35 mg PO DAILY quetiapine 25 mg PO DAILY spironolactone 50 mg PO BID tretinoin 0.025% 1 appl topical BEDTIME Tobacco use date assessed: 08/23/23 Dental Screening Dental Screen Date: 08/23/23 HPI HPI Comments History of Present Illness Details 28-year-old fema le with acne, seas onal allergies, bi polar 2 disorder, PTSD, alcohol use disorder, eczema, migraines, GERD, M DD, ? ADHD inatten tive type, anemia, onychomycosis 28-year-old femal e with acne, seaso nal allergies, bip olar 2 disorder, P TSD, alcohol use d isorder, eczema, m igraines, GERD, D, ? ADHD inattent marcelina type, anemia, onychomycosis Ho spitalizations 202 [facility] due to brooke cide ideation with a plan to overdos e 2021 [place] for etoh Specia lists Psychiatry C ounselor monthly Dial Buffer Derm [facility] ce Pap 09/03/2018 w ithin normal limit s Vaccines reports UTD including flu Hospitalizations 2020 [facility] due t o suicide ideation with a plan to ov [id number] [place] [facility] Sp ecialists Psychiat ry Counselor month ly Dial Buffer Derm L [facility] enance Pap 09/04/19 19 within normal l imits, 09/2023 WNL Vaccines reports U TD including flu Here today for C PE Psych scheduled 11/02/23; will send me request for re fills PRN via the portal Ocular vale ronak headache s now at base of s kull, makes her fe el nauseas; wakes most days w/ a hea dache. Feels she i s well hydrated. N ew control d id not help. Needs new referral to [facility]. Uses excedrin with some relief. labs fro m 07/2023 reviewed w/ her today; norm al except low norm al b12. diet low i n animal meats, fi sh and nuts PFSH Medical History Eczema Migraines Surgical History No pertinent past surgical history Family History Other Mental health disorder Substance abuse Social History Household Members: Family Housing: Apartment Alcohol intake: current Alcohol intake frequency: 3 or more drinks per day Patient Tobacco Use Status: Never used Tobacco Tobacco use type: Smokeless Tobacco e-Cigarette/Vaping Use: Former Use service: No Current occupational status: employed Current occupation: [employer] Current occupational exposures/hazards: No Cognitive needs: No Hearing needs: No Vision needs: No Female Reproductive History Menstrual Age of Menarche: 13 Questionnaire Thrive Questionnaire Date Thrive assessed: 08/23/23 I am a: Patient What is your living situation today?: I have a steady place to live Within the past 12 months, did the food you bought not last and you didn't have the money to get more?: Never true Within the past 12 months, did you worry whether your food would run out before you got money to buy more?: Never true THRIVE Score: 0 TANNA-7 AMB Questionnaire TANNA-7 Date TANNA - 7 assessed: 08/23/23 Source: Developed by Drs. Ash Payne, Cyndie Reeves, Amish Ring and colleagues, with an educational cedric from [employer]. Review of Systems Const Details: Constitutional: Denies fever. Skin: Denies rash. Eye: Denies eye pain. ENMT: Denies sore throat and nasal congestion. Respiratory: Denies shortness of breath and cough. Gastrointestinal: Denies nausea, vomiting or abdominal pain. Cardiovascular: Denies chest pain and syncope. Genitourinary: Denies dysuria. Musculoskeletal: Denies back pain and extremity pain. Neurologic: Denies headaches, confusion, and weakness. Psychiatric: Denies suicidal thoughts and substance abuse. Allergy/ Immunologic: Denies impaired immunity. Physical exam (Primary Care) Tobacco/Smoking Status: Tobacco use Status Tobacco use date assessed 08/23/23 08/23/23 09:31 Patient Tobacco Use Status Never used Tobacco 08/23/23 09:31 Tobacco use type Smokeless Tobacco 08/23/23 09:31 e-Cigarette/Vaping Use Former Use 08/23/23 09:31 Thrive Assessment: Date of Thrive Assessment Date Thrive assessed 08/23/23 08/23/23 09:31 Const Other: General: Well developed, well nourished, in no acute distress. Appears stated age. Head: Normocephalic, atraumatic. Eyes: Pupils are equal, round and reactive to light and accommodation. Conjunctivae are clear. Vision grossly normal. Ears: TMs clear AU, EACS WNL Nose: Patent, without discharge. Mouth: There are no ulcers or lesions noted. No inflammation, no post nasal drip, no plaques nor exudates. Neck: Supple, no adenopathy or thyromegaly. Lungs: Clear to auscultation bilaterally. No rales, rhonchi or wheeze noted. Good air flow in all olvera. Heart: Regular rate and rhythm. No murmurs, click, rubs or gallops are noted. Abdomen: Bowel sounds present in all quadrants. The abdomen is soft, nontender, with no masses or organomegaly noted. No hernias are noted. Musculoskeletal: Joints are nontender, without swelling, redness, or effusions. Range of motion is observed to be normal. Pulses: Peripheral pulses are equal and palpable bilaterally. Extremities: No clubbing, cyanosis nor edema is noted. Neurologic: Gait and station normal. Cranial Nerves 2-12 intact. Motor strengt h grossly symmetrical and intact. No sensory loss. Balance normal. Skin: No rashes, ulcers, or lesions noted. Turgor is good. Skin color is good. Onychomycosis bilat, worse on R great toe Psych: Normal eye contact, affect and mood appropriate, and normal interactions. Patient is alert and appropriate to context. Extremities: No clubbing, cyanosis or edema. Assessment and Plan Assessment & Plan (1) Adult general medical exam: Code(s): Z00.00 - Encounter for general adult medical examination without abnormal findings (2) Migraines: Comment: refer to Neuro start imitrex Code(s): G43.909 - Migraine, unspecified, not intractable, without status migrainosus Qualifiers: Migraine type: migraine (< 15 days per month) without aura Status migrainosus presence: without status migrainosus Intractability: not intractable Qualified Code(s): G43.009 - Migraine without aura, not intractable, without status migrainosus (3) B12 deficiency due to diet: Comment: 07/2023 289 w/o anemia start b12 1000mcg po QD Repeat annually. Code(s): E53.8 - Deficiency of other specified B group vitamins Orders: Referrals Neurology Referral G43.909 - Migraine, unspecified, not intractable, without status migrainosus Medications: New mecobalamin (vitamin B12) 1,000 mcg PO DAILY 90 tabs 2RF sumatriptan succinate (Imitrex) take 1 tab at onset of headache; if no relief may repeat 1 tab after at least 2 hrs; max = 4 tabs/24 hr PO 10 tabs 2RF Patient Instructions: rto 1 year for CPE, sooner PRN Health screenings for women ages 18 to 39 You should visit your health care provider from time to time, even if you are healthy. The purpose of these visits is to: Screen for medical issues Assess your risk for future medical problems Encourage a healthy lifestyle Update vaccinations and other preventive care services Help you get to know your provider in case of an illness Information Even if you feel fine, you should still see your provider for regular checkups. These visits can help you avoid problems in the future. For example, the only way to find out if you have high blood pressure is to have it checked regularly. High blood sugar and high cholesterol levels also may not have any symptoms in t he early stages. A simple blood test can check for these conditions. There are specific times when you should see your provider or receive specific health screenings. The [place] Preventive Services Task Force publishes a list of recommended screenings. Below are screening guidelines for women ages 18 to 39. BLOOD PRESSURE SCREENING Your blood pressure should be checked at least once every 3 to 5 years if: Your blood pressure is in the normal range (top number less than 120 mm Hg and bottom number less than 80 mm Hg) You don't have risk factors for high blood pressure Ask your provider if you need your blood pressure checked more often if: The top number is 120 to 129 mm Hg or the bottom number is 70 to 79 mm Hg You have diabetes, heart disease, kidney problems, are overweight, or have cer tain other health conditions You have a first-degree relative with high blood pressure You are Black You had high blood pressure during a If the top number is 130 mm Hg or greater or the bottom number is 80 mm Hg or greater, this is considered stage 1 hypertension. Schedule an appointment with your provider to learn how you can reduce your blood pressure. Watch for blood pressure screenings in your area. Ask your provider if you can stop in to have your blood pressure checked. BREAST CANCER SCREENING Experts do not agree about the benefits of breast self-exams in finding breast cancer or saving lives. Talk to your provider about what is best for you. A screening mammogram is not recommended for most women under age 40. Your provider may discuss and recommend mammograms, MRI scans, or ultrasounds if you have an increased risk for breast cancer, such as: A mother or sister who had breast cancer at a young age (most often starting screening earlier than the age the close relative was diagnosed) You carry a high-risk genetic marker CERVICAL CANCER SCREENING Cervical cancer screening should start at age 21 years unless your provider advises otherwise. After the first test: Women ages 21 through 29 should have a Pap test every 3 years. Exoprts do not agree on whether HPV testing is recommended for this age group. Women ages 30 through 65 should be screened with either a Pap test every 3 years or the HPV test every 5 years or both tests every 5 years (called cotesting ). Women who have been treated for precancer (cervical dysplasia) should continue to have Pap tests for 20 years after treatment or until age 65, whichever is longer. If you have had your uterus and cervix removed (total hysterectomy), and you have not been diagnosed with cervical cancer or precancer (high grade cervical neoplasia), you do not need cervical cancer screening. CHOLESTEROL SCREENING Cholesterol screening should begin at: Age 45 for women with no known risk factors for coronary heart disease Age 20 for women with known risk factors for coronary heart disease Repeat cholesterol screening should take place: Every 5 years for women with normal cholesterol levels More often if changes occur in lifestyle (including weight gain and diet) More often if you have diabetes, heart disease, kidney problems, or certain other conditions DIABETES SCREENING You should be screened for diabetes starting at age 35 and then repeated every 3 years if you have no risk factors for diabetes. Screening may need to start earlier and be repeated more often if you have other risk factors for diabetes, such as: You have a first degree relative with diabetes. You are overweight or have obesity. You have high blood pressure, prediabetes, or a history of heart disease. Screening for diabetes should be done if you are planning to become and you are overweight and have other risk factors such as high blood pressure. DENTAL EXAM Go to the dentist once or twice every year for an exam and cleaning. Your dentist will evaluate if you need more frequent visits. EYE EXAM Have an eye exam every 5 to 10 years before age 40. If you have vision problems, have an eye exam every 2 years or more often if recommended by your provider. You should have an eye exam that includes an examination of your retina (back of your eye) at least every year if you have diabetes. IMMUNIZATIONS Commonly needed vaccines include: Flu shot: get one every year. COVID-19 vaccine: ask your provider what is best for you. Tetanus-diphtheria and acellular pertussis (Tdap) vaccine: have one at or after age 19 as one of your tetanus-diphtheria vaccines if you did not receive it as an adolescent. Tetanus-diphtheria: have a booster (or Tdap) every 10 years. Varicella vaccine: receive 2 doses if you never had chickenpox or the varicella vaccine. Hepatitis B vaccine: receive 2, 3, or 4 doses, depending on your exact circumstances. Measles, mumps, and rubella (MMR) vaccine: receive 1 to 2 doses if you are not already immune to MMR. Your provider can tell you if you are immune. Ask your provider about the human papillomavirus (HPV) vaccine if: You have not received the HPV vaccine in the past You have not completed the full vaccine series (you should catch up on this shot) Ask your provider if you should receive other immunizations if you have certain health problems that increase your risk for some diseases such as pneumonia. INFECTIOUS DISEASE SCREENING Women who are sexually active should be screened for chlamydia and gonorrhea up until age 25. Women 25 years and older should be screened for chlamydia and gonorrhea if at high risk. Screening for hepatitis C: All adults ages 18 to 79 should get a one-time test for hepatitis C. people should be screened at every . Screening for human immunodeficiency virus (HIV): All people ages 15 to 65 should get a one-time test for HIV. Depending on your lifestyle and medical history, you may also need to be screened for infections such as syphilis and HIV, as well as other infections. PHYSICAL EXAM All adults should visit their provider from time to time, even if they are healthy. The purpose of these visits is to: Screen for disease Assess your risk of future medical problems Encourage a healthy lifestyle Update your vaccinations and other preventive care services Maintain a relationship with a provider in case of an illness Your height, weight, and BMI should be checked at every exam. During your exam, your provider may ask you about: Depression and anxiety Diet and exercise Alcohol and tobacco use Safety issues, such as using seat belts, smoke detectors, and intimate partner violence Your medicines and risk for interactions SKIN SELF-EXAM Your provider may check your skin for signs of skin cancer, especially if you're at high risk, such as if you: Have had skin cancer before Have close relatives with skin cancer Have a weakened immune system OTHER SCREENING Talk with your provider about colon cancer screening if you have a strong family history of colon cancer or polyps, or if you have had inflammatory bowel disease or polyps yourself. Routine bone density screening of women under 40 is not recommended. Coding Level of Care Code Est Pt Prev Care 18-39y([id number]) Diagnoses Adult general medical exam Z00.00 Migraine without aura and without status migrainosus, not intractable G43.009 Migraine type: migraine (< 15 days per month) without aura Status migrainosus presence: without status migrainosus Intractability: not intractable B12 deficiency due to diet E53.8
[2023-10-20 12:08] VITALS: BP 104/60; PULSE 76; O2SAT 100; BMI 20.5
== END 2023-10-20 12:37 | disposition home or self-care (01) ==
PROVIDERS: PCP Hospitalist; Visit Provider Nurse Practitioner Family
DX: Z00.00 Encounter for general adult medical examination without abnormal findings (principal); G43.009 Migraine without aura, not intractable, without status migrainosus; E53.8 Deficiency of other specified B group vitamins
CPT/HCPCS: 99395

== ENCOUNTER 2024-05-01 09:55 | Outpatient (AMB) | payer BC, SELFPAY ==
[2024-05-01 09:56] VITALS: BP 106/70; PULSE 77; O2SAT 99; BMI 20.8
--- NOTE | 2024-05-01 09:56 | A.OFFVIS_ITS ---
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 Cottage Parent Required: No Accompanied by: Self / Same As Patient Allergies latex Adverse Reaction (Verified 05/01/24 09:59) Rash Medication List - Last Reconciled 05/01/24 by SOFIA Barrera cariprazine (Vraylar) 3 mg PO DAILY ukspssyehi-eipqfclvrsw-zxfdbgb 8-1-1 % 1 mL topical BID 30 days hydroxyzine pamoate 25 mg PO DAILY PRN lamotrigine (Lamictal) 50 mg (2 x 25 mg) PO DAILY mecobalamin (vitamin B12) 1,000 mcg PO DAILY norethindrone (contraceptive) 0.35 mg PO DAILY spironolactone 50 mg PO BID sumatriptan succinate (Imitrex) take 1 tab at onset of headache; if no relief may repeat 1 tab after at least 2 hrs; max = 4 tabs/24 hr PO tretinoin 0.025% 1 appl topical BEDTIME HPI Comments Details: Right-handed 29-yr-old female presents for new pt evaluation of headache disorder. Pt reports she has always had headaches. She has 3 headache sub-types. PMH and ROS are notable for:? General: fatigue, h/o alcoholism w/o complication- 2 bottles a wine a night x's 1 yr- stopped 2 yrs ago. 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 Family planning: none ta this time Pertinent denials include: History of concussion/head injury, Respiratory d/o, CV disease, Clotting or hematology d/o, Endocrine d/o, metabolic d/o, History of seizure, GI d/o, Constipation, Family history of migraine or other headache disorder Lifestyle considerations: Sleep routine: Usual bedtime: 9-10pm and wake-up time: 6-6:30am, may wake up at 3am and go back to sleep. Sleep difficulties: Denies Endorses: Fatigue, h/o bruxism. Restless leg- urge to move, creepy crawling sensation, was nightly when stressed, but better now. 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 Types of headache disorders: 3 #1 Typical headache characteristics: Prodrome symptoms: none Aura: none Pain intensity: mild Location, quality, characteristics: Usually wakes up with this headache. Burning forehead but also holocranial. Associated symptoms: photophobia, phonophobia, nausea, fatigue, cognitive difficulties, activity intolerance, Postdrome: sometimes may have lingering fatigue Triggers: none Time of day: wakes up with headache Duration and Frequency: varies, maybe twice a week, lasts a few hours. How does headache impact your life? if able, would limit her activities #2 Typical headache characteristics: Prodrome symptoms: none Aura: peripheral vision blurriness Pain intensity: moderate-severe Location, quality, characteristics: Left frontal, feels like she cannot open her eye, pressure/swollen/tingling feeling. Associated symptoms: photophobia, phonophobia, may smell something that is not there, nausea, not right in space dizziness, fatigue, cognitive difficulties, activity intolerance Postdrome: takes longer to recover, feels out of it, confused longer Triggers: stress Time of day: in the afternoon Duration and Frequency: twice a month, lasts a few hours. How does headache impact your life? will need to leave work #3 Typical headache characteristics: Prodrome symptoms: none Aura: rarely the peripheral blurriness or scotoma Pain intensity: moderate- but varies Location, quality, characteristics: Bilateral occipital throbbing Associated symptoms: photophobia, phonophobia, allodynia, nausea, fatigue, cognitive difficulties, activity intolerance, Postdrome: slowly fades Triggers: poor fluid intake, stress, lights, sounds Time of day: No specific time of day Duration and Frequency: varies- can be daily if stressed. How does headache impact your life? not as debilitating as the others. Current acute medication use/interventions: Excedrin- help #3 headache. Sumatriptan 25mg- helps but causes sleepiness. Current preventative medication use: none Non-pharmacological interventions: Ice roller, helps some. [facility] Medical History (Updated 05/13/24 @ 16:47 by SOFIA Barrera) Eczema Migraines Surgical History No pertinent past surgical history Family History Other Mental health disorder Substance abuse Social History Household Members: Family Housing: Apartment Alcohol intake: current Alcohol intake frequency: 3 or more drinks per day Patient Tobacco Use Status: Never used Tobacco Tobacco use type: Smokeless Tobacco e-Cigarette/Vaping Use: Former Use service: No Current occupational status: employed Current occupation: [employer] Current occupational exposures/hazards: No Cognitive needs: No Hearing needs: No Vision needs: No Female Reproductive History Menstrual Age of Menarche: 13 Physical Exam Vital Signs: Last Vital Signs Pulse 77 05/01/24 09:56 BP 106/70 05/01/24 09:56 Pulse Ox 99 05/01/24 09:56 Oxygen Delivery Method Room Air 05/01/24 09:56 BMI result Body Mass Index 20.8 Const Orientation/consciousness: patient oriented x3 Resp Effort & Inspection: normal respiratory effort and able to speak in complete sentences Neuro General: patient oriented x3 Cranial nerves: Yes CN's II-XII intact bilaterally Cognition (Neuro): normal cognition Gait exam (Neuro): Normal gait present Motor exam (neuro): 5/5 motor strength present throughout Deep tendon reflexes (DTR's): Right triceps reflex intensity grade: 2+, Left triceps reflex intensity grade: 2+, Rt Biceps (C5, C6): 2+, Left biceps reflex intensity grade: 2+, Right brachioradialis reflex intensity grade: 2+, Left brachioradialis reflex intensity grade: 2+, Right patellar reflex intensity grade: 2+ and Left patellar reflex intensity grade: 2+ Coordination: [id number]-[id number] test normal, tandem gait normal and Romberg test negative Pupils: Normal pupillary reactivity/response: bilateral Psych Appearance: grossly normal Mental Status: mental status grossly normal Speech and movement: Normal speech and movement present Affect: normal affect Attitude: cooperative Thought process: Normal thought process present Assessment & Plan Assessment & Plan (1) Migraine with aura: Code(s): G43.109 - Migraine with aura, not intractable, without status migrainosus Category: Medical Qualifiers: Status migrainosus presence: without status migrainosus Intractability: not intractable Qualified Code(s): G43.109 - Migraine with aura, not intractable, without status migrainosus (2) Left-sided headache: Code(s): R51.9 - Headache, unspecified Category: Medical Plan Pt advised to undergo: Open MRI brain w/o contrast- to assess for secondary etiologies of atypical headache symptoms of may smell something that is not there, left sided side lock ed burning headache. Note pt offered MRI w/wo, however she declines contrast d/t anxiety over it. For overall headache management: * Optimize good self-care, including but not limited to maintaining a healthy diet, adequate fluid intake, adequate sleep, and engaging in regular physical activity. * Track headaches, especially after any treatment regimen changes. [employer] is one of many headache tracking apps. For acute headache treatment: Discussed importance of taking acute medications at the first sign of headache, however stressed importance of avoiding acute medication overuse (especially with combined headache medications). Stop Sumatriptan 25mg- causes fatigue. Trial Naratriptan 2.5mg tab, 1/2 - 1 tab (1.25-2.5mg) at onset of headache, may repeat in 4 hours. Max of 2 tabs (5mg) per 24 hours. May adjunct with OTC Tylenol 650mg every 4 hours, Ibuprofen (liquigel) 600mg every 6 hours, or Naproxen (liquigel) 440mg every 12 hrs as needed. Potential adverse effects of triptans, include but are not limited to nausea, fatigue, chest tightness/tingling (usually passes within a few minutes), medication overuse headaches. Previous acute migraine medication trials: Sumatriptan 25mg- causes fatigue. Acute migraine medication contraindications: None at this time For headache prevention medication: Preventative medications should be taken routinely as prescribed for best effect , it may take several weeks for full effect to take effect. Start Riboflavin 400mg qam Start Magnesium 400mg qhs Trial Topiramate 25mg qhs x's 1 week, then may increase by 25mg nightly at 1 week intervals, up to 100mg qhs. Potential adverse effects of Topiramate, include but are not limited to fatigue, cognitive changes, paresthesias (tingling), vision changes, kidney stones. Previous migraine prevention medication trials: lamotrigine- for bipolar d/o- not helpful for headaches. Migraine prevention medication contraindications: Caution w/ anti-depressants d/t bipolar d/o, avoid Depakote in female of child bearing age. Pt seen in collaboration w/ Dr Adriana Cowan. Will follow-up upon review of above and patient to follow-up in clinic in 3-4 months or sooner prn. Orders: Orders MR head/brain wo con 05/01/24 R51.9 - Headache, unspecified, G43.109 - Migraine with aura, not intractable, without status migrainosus, R20.2 - Paresthesia of skin Medications: New naratriptan take 1/2 - 1 tab at onset of headache; if no relief may repeat 1 tab after at least 4 hrs; max = 2 tabs/24 hrs orally PRN; 12 tabs 6RF migraine headache 30 days riboflavin (vitamin B2) 400 mg PO DAILY 30 tabs 6RF 30 days magnesium oxide may hold for loose stools 400 mg PO BEDTIME 30 tabs 6RF 30 days topiramate 1 tab qhs x's 1 wkk, may increase by 1 tab q week to max of 4 tabs qhs. orally bedtime; Increase by 1 tab q week to 120 tabs 3RF 30 days Discontinued sumatriptan succinate Discontinued Reason: Doctor's Order take 1 tab at onset of headache; if no relief may repeat 1 tab after at least 2 hrs; max = 4 tabs/24 hr PO 10 tabs 2RF Coding Level of Care Code New Pt Level 4 (85503) Diagnoses Migraine with aura and without status migrainosus, not intractable G43.109 Status migrainosus presence: without status migrainosus Intractability: not intractable Left-sided headache R51.9
== END 2024-05-01 11:30 | disposition home or self-care (01) ==
LOC: HO.HSMS 09:55
PROVIDERS: PCP Nurse Practitioner Family; Visit Provider Nurse Practitioner Family
DX: G43.109 Migraine with aura, not intractable, without status migrainosus (principal); R51.9 Headache, unspecified
CPT/HCPCS: 99204

== ENCOUNTER → 2024-05-01 09:55 | Outpatient (BNVA) | payer BC, SELFPAY | PROVIDERS: PCP Nurse Practitioner Family; Visit Provider Nurse Practitioner Family ==

== ENCOUNTER 2024-05-22 08:00 | Outpatient (AMB) | payer BC, SELFPAY ==
--- NOTE | 2024-05-22 08:04 | MHC.PC.OV ---
Vital Signs 05/22/24 08:08 Height 5 ft 9 in Weight 144 lb 8 oz BMI 21.3 BP 112/66 Blood Pressure Location Lt brachial Position Sitting Respiration 12 Pulse 65 Pulse Source Pulse Oximeter Pulse Oximetry (%) 99 Oxygen Delivery Method Room Air Intake Visit Reasons: uti symptoms Intake Note: Patient complaining of painful urination, and frequency x2 days. [employer] Required: No Allergies latex Adverse Reaction (Verified 05/22/24 08:14) Rash Medication List - Last Reconciled 05/22/24 by Yoli Orellana, CLIENT ACCOUNT REPRESENTATIVE- cariprazine (Vraylar) 3 mg PO DAILY cpwidzvpos-vcbwosadwuv-zmptmnu 8-1-1 % 1 mL topical BID 30 days hydroxyzine pamoate 25 mg PO DAILY PRN lamotrigine (Lamictal) 50 mg (2 x 25 mg) PO DAILY magnesium oxide 400 mg PO BEDTIME 30 days mecobalamin (vitamin B12) 1,000 mcg PO DAILY naratriptan take 1/2 - 1 tab at onset of headache; if no relief may repeat 1 tab after at least 4 hrs; max = 2 tabs/24 hrs orally PRN; 30 days norethindrone (contraceptive) 0.35 mg PO DAILY riboflavin (vitamin B2) 400 mg PO DAILY 30 days spironolactone 50 mg PO BID topiramate 1 tab qhs x's 1 wkk, may increase by 1 tab q week to max of 4 tabs qhs. orally bedtime; Increase by 1 tab q week to 30 days tretinoin 0.025% 1 appl topical BEDTIME Tobacco use date assessed: 08/23/23 Dental Screening Dental Screen Date: 08/23/23 HPI HPI Comments History of Present Illness Details 29-year-old female with acne, seasonal allergies, bipolar 2 disorder, PTSD, alcohol use disorder, eczema, migraines, GERD, MDD, ADHD, anemia Hospitalizations 2020 [facility] due to suicide ideation with a plan to overdose Specialists Psychiatry Health maintenance Pap 09/03/2018 within normal limits History of Present Illness The patient is a 29-year-old female presenting with urinary urgency and discomfort. The symptoms began a few days ago, characterized by a frequent urge to urinate without the actual need to void. The discomfort and sense of urgency were particularly bothersome the previous day. Currently, the patient is menstruating, which she notes is associated with mild back pain. She denies any vaginal discharge or itching and reports no concerns for sexually transmitted infections. She recently changed to using her boyfriend's detergent, which she suspects may contribute to her symptoms due to increased sensitivity during her menstrual cycle. Her medical history includes a previous prescription for Topiramate for migraines, which she discontinued due to side effects affecting taste. She is currently taking magnesium and Vitamin B2 supplements, prescribed by her neurologist. Physical Exam Awake, alert NAD MMM RRR No CVAT bilat No suprapubic tenderness Urine dip as below Plan Urine dip negative for infection. Advised to hydrate liberally - Urinary Urgency: Begin utli-euc-gmmysoz Azo to help manage urinary symptoms. The patient was instructed to monitor symptoms and advised on potential color changes in the urine due to Azo. - External Discomfort: Acknowledged the potential irritation from detergent use as a contributing factor. Recommended using fragrance-free detergent, particularly for intimate garments, to reduce irritation risk. - Urinary Testing: Provide a urine sample cup for home collection if symptoms worsen. Instructions for contacting the clinic through the portal were given for further analysis and potential prescription of antibiotics if indicated. Advised the patient to consider further neurological evaluation for migraine management adjustments, especially concerning the discontinued Topiramate. Follow-up with neurology for ongoing migraine treatment as needed. - Immunizations: Offered the seasonal influenza vaccine, which the patient declined at this visit but may consider later. Patient was informed and verbally consented to the use of an ambient scribe for clinic note documentation during this visit. Total time spent caring for the patient today was 30 minutes. This includes time spent before the visit reviewing the chart, time spent during the visit, and time spent after the visit on documentation [facility] Medical History (Updated 05/22/24 @ 08:21 by Yoli Orellana [facility]) Eczema Migraines Surgical History No pertinent past surgical history Family History Other Mental health disorder Substance abuse Social History Household Members: Family Housing: Apartment Alcohol intake: current Alcohol intake frequency: 3 or more drinks per day Patient Tobacco Use Status: Never used Tobacco Tobacco use type: Smokeless Tobacco e-Cigarette/Vaping Use: Former Use service: No Current occupational status: employed Current occupation: [employer] Current occupational exposures/hazards: No Cognitive needs: No Hearing needs: No Vision needs: No Female Reproductive History Menstrual Age of Menarche: 13 Questionnaire PHQ-9 Over the last 2 weeks, how often have you been bothered by any of the following problems? 1. Little interest or pleasure in doing things: not at all 2. Feeling down, depressed, or hopeless: not at all 3. Trouble falling or staying asleep, or sleeping too much: not at all 4. Feeling tired or having little energy: not at all 5. Poor appetite or overeating: not at all 6. Feeling bad about yourself - or that you are a failure or have let yourself or your family down: not at all 7. Trouble concentrating on things, such as reading the newspaper or watching television: not at all 8. Moving or speaking so slowly that other people could have noticed. Or the opposite - being so fidgety or restless that you have been moving around a lot more than usual: not at all 9. Thoughts that you would be better off or of hurting yourself in some way: not at all Total score: 0 28364 - PHQ-9 Billing: Yes Source: Developed by Drs. Ash Payne, Cyndie Reeves, Amish Ring and colleagues, with an educational cedric from [employer]. Thrive Questionnaire Date Thrive assessed: 05/22/24 I am a: Patient What is your living situation today?: I have a steady place to live Within the past 12 months, did the food you bought not last and you didn't have the money to get more?: Never true Within the past 12 months, did you worry whether your food would run out before you got money to buy more?: Never true Do you have trouble paying for medicines?: No Do you have trouble getting transportation to medical appointments?: No Do you have trouble paying your heating and electricity bill?: No Do you have trouble taking care of your child, family member or friend?: No Do you have trouble with day-to-day activities such as bathing, preparing meals, shopping, managing finances, etc.?: No Are you currently unemployed and looking for a job?: No Are you interested in more education?: No Please select the resources that you would like help with: None Currently or been in a relationship where the following occur: No concerns reported THRIVE Score: 0 AUDIT C Alcohol Use Questionnaire (AUDIT-C) 1. How often do you have a drink containing alcohol?: Never Total Score: 0 TANNA-7 AMB Questionnaire TANNA-7 Date TANNA - 7 assessed: 05/22/24 Feeling nervous, anxious, or on edge: 0 = Not at all Not being able to stop or control worryin = Not at all Worrying too much about different things: 0 = Not at all Trouble relaxin = Not at all Being so restless that it is hard to sit still: 0 = Not at all Becoming easily annoyed or irritable: 0 = Not at all Feeling afraid as if something awful might happen: 0 = Not at all Total TANNA-7 score (0-4 normal; 5-9 mild; 10-14 moderate; 15-21 severe): 0 Source: Developed by Drs. Ash Payne, Cyndie Reeves, Amish Rign and colleagues, with an educational cedric from [employer]. TANNA-7 Assessment Billing TANNA-7 Assessment Tool: TANNA-7 Assessment 32297 Physical exam (Primary Care) Vital Signs: Last Vital Signs Pulse 65 05/22/24 08:08 Resp 12 05/22/24 08:08 BP 112/66 05/22/24 08:08 Pulse Ox 99 05/22/24 08:08 Oxygen Delivery Method Room Air 05/22/24 08:08 BMI result Body Mass Index 21.3 Tobacco/Smoking Status: Tobacco use Status Tobacco use date assessed 08/23/23 05/22/24 08:05 Patient Tobacco Use Status Never used Tobacco 05/22/24 08:05 Tobacco use type Smokeless Tobacco 05/22/24 08:05 e-Cigarette/Vaping Use Former Use 05/22/24 08:05 PHQ-9: PHQ-9 Score PHQ-9: Total score 0 05/22/24 08:45 Thrive Assessment: Date of Thrive Assessment Date Thrive assessed 05/22/24 05/22/24 08:05 Currently or been in a relationship where the following occur: No concerns reported Results AMB Urinalysis Dipstick UR Leukocytes Negative Last Edit by Hemant Chappell MA on 05/22/24 08:31 UR Nitrite Negative Last Edit by Hemant Chappell MA on 05/22/24 08:31 UR Urobilinogen Normal Last Edit by Hemant Chappell MA on 05/22/24 08:31 UR Protein Trace Last Edit by Hemant Chappell MA on 05/22/24 08:31 UR Ph 5.0 Last Edit by Hemant Chappell MA on 05/22/24 08:31 UR Blood Trace Last Edit by Hemant Chappell MA on 05/22/24 08:31 UR Specific [place] 1.025 Last Edit by Hemant Chappell MA on 05/22/24 08:31 UR Ketone Negative Last Edit by Hemant Chappell MA on 05/22/24 08:31 UR Bilirubin Small Last Edit by Hemant Chappell MA on 05/22/24 08:31 UR Glucose Negative Last Edit by Hemant Chappell MA on 05/22/24 08:31 Results Reviewed Results Reviewed: Laboratory Last Values Urine pH (Clinic) 5.0 05/22/24 08:27 Specific [place] (Clinic) 1.025 05/22/24 08:27 Ur Protein (Clinic) Trace 05/22/24 08:27 Ur Ketones (Clinic) Negative 05/22/24 08:27 Urine Blood (Clinic) Trace 05/22/24 08:27 Urine Nitrite Negative 05/22/24 08:27 Urine Bilirubin (Clinic) Small 05/22/24 08:27 Urobilinogen (Clinic) Normal 05/22/24 08:27 Leukocyte Esterase (Clinic) Negative 05/22/24 08:27 Urine Glucose (Clinic) Negative 05/22/24 08:27 Coding Level of Care Code Est Pt Level 4 (05400) Complex EM visit Add On G2211 Diagnoses Urinary urgency R39.15 Dysuria R30.0 Influenza vaccination declined Z28.21 Additional Codes TANNA-7 Assessment Billing - TANNA-7 Assessment Tool: TANNA-7 Assessment 91612 ([id number]) PHQ-9 - 94406 - PHQ-9 Billing: Yes ([id number]) Assessment & Plan Assessment & Plan (1) Urinary urgency: Code(s): R39.15 - Urgency of urination (2) Dysuria: Code(s): R30.0 - Dysuria Category: Medical (3) Influenza vaccination declined: Code(s): Z28.21 - Immunization not carried out because of patient refusal Category: Medical Plan . Orders: Orders AMB Urinalysis Dipstick Today Z13.9 - Encounter for screening, unspecified UA CC w/rflx Micro + Cult Today R30.0 - Dysuria Medications: Discontinued topiramate Discontinued Reason: Patient no longer taking 1 tab qhs x's 1 wkk, may increase by 1 tab q week to max of 4 tabs qhs. orally bedtime; Increase by 1 tab q week to 30 days 120 tabs 3RF
[2024-05-22 08:08] VITALS: BP 112/66; PULSE 65; RESP 12; O2SAT 99; BMI 21.3
== END 2024-05-22 08:28 | disposition home or self-care (01) ==
PROVIDERS: PCP Nurse Practitioner Family; Visit Provider Nurse Practitioner Family
DX: R39.15 Urgency of urination (principal); R30.0 Dysuria; Z28.21 Immunization not carried out because of patient refusal; Z13.9 Encounter for screening, unspecified

== ENCOUNTER → 2024-05-22 08:00 | Outpatient (BNVA) | payer BC, SELFPAY | PROVIDERS: PCP Nurse Practitioner Family; Visit Provider Nurse Practitioner Family | DX: R39.15 Urgency of urination (principal); R30.0 Dysuria; Z28.21 Immunization not carried out because of patient refusal | CPT/HCPCS: 81002; 96127 ==

== ENCOUNTER 2024-08-01 07:47 | Outpatient (AMB) | payer BC, SELFPAY ==
--- NOTE | 2024-08-01 07:47 | A.OFFVIS_ITS ---
Intake Visit Reasons: Follow Up 3mo Allergies latex Adverse Reaction (Verified 08/01/24 07:48) Rash Medication List - Last Reconciled 08/01/24 by SOFIA Barrera cariprazine (Vraylar) 3 mg PO DAILY glwpslqmey-hpomiozxjph-pymnkwc 8-1-1 % 1 mL topical BID 30 days hydroxyzine pamoate 25 mg PO DAILY PRN lamotrigine (Lamictal) 50 mg (2 x 25 mg) PO DAILY magnesium oxide 400 mg PO BEDTIME 30 days mecobalamin (vitamin B12) 1,000 mcg PO DAILY naratriptan take 1/2 - 1 tab at onset of headache; if no relief may repeat 1 tab after at least 4 hrs; max = 2 tabs/24 hrs orally PRN; 30 days norethindrone (contraceptive) 0.35 mg PO DAILY ondansetron 4 - 8 mg (1 - 2 x 4 mg) PO Q4-6H PRN 30 days propranolol ER 60 mg PO BEDTIME 30 days riboflavin (vitamin B2) 400 mg PO DAILY 30 days spironolactone 50 mg PO BID tretinoin 0.025% 1 appl topical BEDTIME HPI Comments Details: Right-handed 29-yr-old female presents for follow-up televisit for migraine and headache. Patient is unable to use tele video technology today. Patient denies any interval medical history changes. 05/30/2024 MRI brain without contrast was reassuring, there were no acute intracranial findings. Patient reports overall her headache burden has decreased. Has been having approx 1 migraine day per week. She did have one more severe migraine which lasted 3 days, and for the 1st time was a/w vomiting. Her migraine attacks are often associated with nausea. She started Naratriptan 2.5mg tab, which works well. However when she had the more severe prolonged migraine, the naratriptan did not work as well. She has not been taking Tylenol or an NSAID with the triptan. For headache prevention medication: Preventative medications should be taken routinely as prescribed for best effect, it may take several weeks for full effect to take effect. Started Riboflavin and Magnesium- tolerating well. Tried Topiramate, however stopped it as it caused taste change, intolerable. 05/01/2024 Initial HPI: Pt reports she has always had headaches. She has 3 headache sub-types. PMH and ROS are notable for:? General: fatigue, h/o alcoholism w/o complication- 2 bottles a wine a night x's 1 yr- stopped 2 yrs ago. Musculoskeletal disorders or injury: menstrual back pain Mood d/o: Anxiety, Depression, Bilpolar type 2 History of syncope- from a blood draw I&C TECH: Menses is regular on mini-ill. Family planning: none ta this time Pertinent denials include: History of concussion/head injury, Respiratory d/o, CV disease, Clotting or hematology d/o, Endocrine d/o, metabolic d/o, History of seizure, GI d/o, Constipation, Family history of migraine or other headache disorder Lifestyle considerations: Sleep routine: Usual bedtime: 9-10pm and wake-up time: 6-6:30am, may wake up at 3am and go back to sleep. Sleep difficulties: Denies Endorses: Fatigue, h/o bruxism. Restless leg- urge to move, creepy crawling sensation, was nightly when stressed, but better now. 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 Types of headache disorders: 3 #1 Typical headache characteristics: Prodrome symptoms: none Aura: none Pain intensity: mild Location, quality, characteristics: Usually wakes up with this headache. Burning forehead but also holocranial. Associated symptoms: photophobia, phonophobia, nausea, fatigue, cognitive difficulties, activity intolerance, Postdrome: sometimes may have lingering fatigue Triggers: none Time of day: wakes up with headache Duration and Frequency: varies, maybe twice a week, lasts a few hours. How does headache impact your life? if able, would limit her activities #2 Typical headache characteristics: Prodrome symptoms: none Aura: peripheral vision blurriness Pain intensity: moderate-severe Location, quality, characteristics: Left frontal, feels like she cannot open her eye, pressure/swollen/tingling feeling. Associated symptoms: photophobia, phonophobia, may smell something that is not there, nausea, not right in space dizziness, fatigue, cognitive difficulties, activity intolerance Postdrome: takes longer to recover, feels out of it, confused longer Triggers: stress Time of day: in the afternoon Duration and Frequency: twice a month, lasts a few hours. How does headache impact your life? will need to leave work #3 Typical headache characteristics: Prodrome symptoms: none Aura: rarely the peripheral blurriness or scotoma Pain intensity: moderate- but varies Location, quality, characteristics: Bilateral occipital throbbing Associated symptoms: photophobia, phonophobia, allodynia, nausea, fatigue, cognitive difficulties, activity intolerance, Postdrome: slowly fades Triggers: poor fluid intake, stress, lights, sounds Time of day: No specific time of day Duration and Frequency: varies- can be daily if stressed. How does headache impact your life? not as debilitating as the others. Current acute medication use/interventions: Excedrin- help #3 headache. Sumatriptan 25mg- helps but causes sleepiness. Current preventative medication use: none Non-pharmacological interventions: Ice roller, helps some. PFSH Medical History Eczema Migraines Surgical History No pertinent past surgical history Family History Other Mental health disorder Substance abuse Social History Household Members: Family Housing: Apartment Alcohol intake: current Alcohol intake frequency: 3 or more drinks per day Patient Tobacco Use Status: Never used Tobacco Tobacco use type: Smokeless Tobacco e-Cigarette/Vaping Use: Former Use service: No Current occupational status: employed Current occupation: [employer] Current occupational exposures/hazards: No Cognitive needs: No Hearing needs: No Vision needs: No Female Reproductive History Menstrual Age of Menarche: 13 Physical Exam Const General: cooperative and no acute distress Orientation/consciousness: patient oriented x3 Resp Effort & Inspection: normal respiratory effort and able to speak in complete sentences Neuro General: patient oriented x3 Cognition (Neuro): normal cognition Psych Attitude: cooperative Telehealth Telehealth Telehealth Platform: Telephone Location of provider rendering services: practice address Location of patient: address on file Patient Identification confirmed using: Name, : Yes Telehealth method: voice only Patient verbally consented to treatment: Yes Patient verbally consented to billing insurance company: Yes Patient informed of any privacy concerns related to visit: Yes Minutes spent on Phone/Video with Pt.: 23 Assessment & Plan Assessment & Plan (1) Migraine with aura: Code(s): G43.109 - Migraine with aura, not intractable, without status migrainosus Category: Medical Qualifiers: Intractability: not intractable Status migrainosus presence: without status migrainosus Qualified Code(s): G43.109 - Migraine with aura, not intractable, without status migrainosus (2) Left-sided headache: Code(s): R51.9 - Headache, unspecified Category: Medical Plan Pt advised to undergo: Reviewed 05/30/2024 MRI brain without contrast was reassuring, there were no acute intracranial findings. For overall headache management: * Optimize good self-care, including but not limited to maintaining a healthy diet, adequate fluid intake, adequate sleep, and engaging in regular physical activity. * Track headaches, especially after any treatment regimen changes. [employer] is one of many headache tracking apps. For acute headache treatment: Discussed importance of taking acute medications at the first sign of headache, however stressed importance of avoiding acute medication overuse (especially with combined headache medications). Continue Naratriptan 2.5mg tab, 1/2 - 1 tab (1.25-2.5mg) at onset of headache, may repeat in 4 hours. Max of 2 tabs (5mg) per 24 hours. She may take naratriptan with an OTC Tylenol 650mg every 4 hours, Ibuprofen (liquigel) 600mg every 6 hours, or Naproxen (liquigel) 440mg every 12 hrs as needed. Trial ondansetron ODT 4 mg, 1-2 tabs sublingual every 4-6 hours as needed for nausea. For prolonged migraine attack, may use Benadryl 25-50 mg every 6-8 hours as needed to help patient's sleep through migraine attack. Previous acute migraine medication trials: Sumatriptan 25mg- causes fatigue. Acute migraine medication contraindications: None at this time For headache prevention medication: Continue Riboflavin 400mg daily in the morning Continue Magnesium 400mg daily at bedtime Discontinue Topiramate 25mg- not tolerated. Start Propranolol ER 60 mg daily. Pot at bedtimeential side effects include but are not limited to fatigue, lightheadedness, low blood pressure, low heart rate, asthma/respiratory disease exacerbation, weight gain, hair loss, sexual dysfunction. Previous migraine prevention medication trials: lamotrigine- for bipolar d/o- not helpful for headaches. Topiramate 25 mg= not tolerated, caused intolerable taste changes. Migraine prevention medication contraindications: Caution w/ anti-depressants d/t bipolar d/o, avoid Depakote in female of child bearing age. Pt to follow-up in 6 months or sooner prn. Medications: New propranolol ER 60 mg PO BEDTIME 30 caps 3RF 30 days ondansetron 4 - 8 mg (1 - 2 x 4 mg) PO Q4-6H PRN 20 tabs 6RF nausea and vomiting 30 days Coding Level of Care Code Tele Est Pt Level 4 (86880) Diagnoses Migraine with aura and without status migrainosus, not intractable G43.109 Intractability: not intractable Status migrainosus presence: without status migrainosus Left-sided headache R51.9
== END 2024-08-01 13:25 | disposition home or self-care (01) ==
LOC: HO.HSMS 07:47
PROVIDERS: PCP Nurse Practitioner Family; Visit Provider Nurse Practitioner Family
DX: G43.109 Migraine with aura, not intractable, without status migrainosus (principal)
CPT/HCPCS: 98968

== ENCOUNTER 2024-10-29 09:57 | Outpatient (REF) | payer OTHER, SELFPAY ==
--- OUTSIDE RECORDS SUMMARY | 2024-10-29 16:46 | XMS_ITS | Encounter Summary ---
Author Organization [facility] Address [address] [place] [address] Phone Care Team Providers Care Mangle Tender Name Role Phone Unavailable Primary Care Provider Unavailabl e Encounter Details Date Type Department Care Team (Late st Contact Info) Description 07/03/2014 [place] [facility] [place] [address] [place] [address] Family Medicine, Physician [address] [place] [address] Social History Tobacco Use Types Packs/Day Years [...]
--- OUTSIDE RECORDS SUMMARY | 2024-10-29 16:46 | XMS_ITS | Encounter Summary ---
Author Organization [facility] Address [address] [place] [address] Phone Care Team Providers Care Professor Of Political Science Name Role Phone Unavailable Primary Care Provider Unavailabl e Encounter Details Date Type Department Care Team (Late st Contact Info) Description 07/03/2014 [place] [facility] [place] [address] [place] [address] Family Medicine, Physician [address] [place] [address] Social History Tobacco Use Types Packs/Day Years [...]
--- OUTSIDE RECORDS SUMMARY | 2024-10-29 16:46 | XMS_ITS | Encounter Summary ---
Author Organization [facility] Address [address] [place] [address] Phone Care Team Providers Care Internet Marketing Consultant Name Role Phone Unavailable Primary Care Provider Unavailabl e Encounter Details Date Type Department Care Team (Late st Contact Info) Description 06/05/2012 Documentation [facility] [place] Family Medicine [address] [place] [address] Family Medicine, Physician [address] [place] [address] Social History Tobacco Use Types Packs/Day Years [...]
--- OUTSIDE RECORDS SUMMARY | 2024-10-29 16:46 | XMS_ITS | Encounter Summary ---
Author Organization [facility] Address [address] [place] [address] Phone Care Team Providers Care Pug Mill Operator Name Role Phone Unavailable Primary Care Provider Unavailabl e Encounter Details Date Type Department Care Team (Late st Contact Info) Description 09/26/2013 Documentation [facility] [place] Medicine [address] [place] [address] Family Medicine, Physician [address] [place] [address] Social History Tobacco Use Types Packs/Day Years [...]
--- OUTSIDE RECORDS SUMMARY | 2024-10-29 16:46 | XMS_ITS | Encounter Summary ---
Author Organization [facility] Address [address] [place] [address] Phone Care Team Providers Care Gun Perforator Name Role Phone Unavailable Primary Care Provider Unavailabl e Encounter Details Date Type Department Care Team (Late st Contact Info) Description 02/11/2017 Documentation [facility] [place] Family Medicine [address] [place] [address] Family Medicine, Physician [address] [place] [address] Social History Tobacco Use Types Packs/Day Years [...]
--- OUTSIDE RECORDS SUMMARY | 2024-10-29 16:46 | XMS_ITS | Clinical Summary ---
Author Organization [facility] Address [address] [place] [address] Phone Care Team Providers Care Nutrition Tech Name Role Phone Unavailable Primary Care Provider [...] of *Thrombophilia, No family history of *Sudden /NH under 55, Family history of Obesity, Family [...] complete this topic Procedures * Due to [place] [employer] law, this organization might not be sharing sensitive test results. Procedure Name Priority Date/Time Associated Diagnosis Comments CHLAMYDIA AND GONORRHEA, AMPLIFIED Routine 11/10/2015 2:04 PM EDT from Last 3 Months or Most Recently Relevant to Health Maintenance Results * Due to [place] [employer] law, this organization might not be sharing sensitive test results. * Chlamydia and Gonorrhoea, Amplified (11/10/2015 2:04 PM EDT) Pathologist [facility] URINE GC AMP PROBE NEGATIVE F [facility] Comment: No Neisseria Gonorrhoeae RNA detected in this patient's sample (REFERENCE RANGE/NORMAL VALUE: NOT DETECTED) NOTE: This test uses head bellhop captain-mediated amplification method to detect rRNA from C.Trachomatis [...] without risk of sexual abuse. Consult the [facility]acy [facility] if needed. Contact phone number . Therapeutic failure or success cannot be determined with the Aptima Combo2 assay since nucleic acid may persist following appropriate antimicrobial therapy. The Centers for Disease Control and Prevention (CDC) recommends confirmatory retesting using culture or a different nucleic acid amplification test when positive results occur, if indicated. Testing performed or reported by [facility], a Service of [facility], [place] [address] CLIA ??[id number] Kleber Estevez MD, PhD, Collection Systems Worker URINE CHLAMYDIA AMP PROBE NEGATIVE [facility] Comment: No Chlamydia Trachomatis RNA detected in this patient's sample (REFERENCE RANGE/NORMAL VALUE: NOT DETECTED) 11/10/2015 2:04 PM EDT Narrative [facility] - 11/10/2015 2:04 PM EDT URINE CHLAMYDIA GC AMP PROBE us Rosibel Sargent MD LAB MICROBIOLOGY - GENERAL O RDERABLES Final Result [facility] [address] [place] [address], [place] from Last 3 Months or Most Recently Relevant to Health Maintenance
--- OUTSIDE RECORDS SUMMARY | 2024-10-29 16:46 | XMS_ITS | Encounter Summary ---
Author Organization [facility] Address [address] [place] [address] Phone Care Team Providers Care News Analyst Name Role Phone Unavailable Primary Care Provider Unavailabl e Encounter Details Date Type Department Care Team (Late st Contact Info) Description 11/10/2015 Documentation [facility] [place] [address] [place] [address] Family Medicine, Physician [address] [place] [address] Social History Tobacco Use Types Packs/Day Years [...]
--- OUTSIDE RECORDS SUMMARY | 2024-10-29 16:46 | XMS_ITS | Encounter Summary ---
Author Organization [facility] Address [address] [place] [address] Phone Care Team Providers Care Raw Stock Machine Feeder Name Role Phone Unavailable Primary Care Provider Unavailabl e Encounter Details Date Type Department Care Team (Late st Contact Info) Description 02/09/2017 Conversion Encounter [facility] - [address] [address] Social History Tobacco Use Types Packs/Day Years [...]
--- OUTSIDE RECORDS SUMMARY | 2024-10-29 16:46 | XMS_ITS | Encounter Summary ---
Author Organization [facility] Address [address] [place] [address] Phone Care Team Providers Care Physical Therapy Technician Name Role Phone Unavailable Primary Care Provider Unavailabl e Encounter Details Date Type Department Care Team (Late st Contact Info) Description 07/01/2013 Documentation [facility] [place] Family Medicine [address] [place] [address] Family Medicine, Physician [address] [place] [address] Social History Tobacco Use Types Packs/Day Years [...]
--- OUTSIDE RECORDS SUMMARY | 2024-10-29 16:46 | XMS_ITS | Encounter Summary ---
Author Organization [facility] Address [address] [place] [address] Phone Care Team Providers Care Oil Burner Mechanic Name Role Phone Unavailable Primary Care Provider Unavailabl e Encounter Details Date Type Department Care Team (Late st Contact Info) Description 07/03/2014 Documentation [facility] [place] Family [place] [address] [place] [address] Family Medicine, Physician [address] [place] [address] Social History Tobacco Use Types Packs/Day Years [...]
--- OUTSIDE RECORDS SUMMARY | 2024-10-29 16:46 | XMS_ITS | Encounter Summary ---
Author Organization [facility] Address [address] [place] [address] Phone Care Team Providers Care Beveling Machine Operator Name Role Phone Unavailable Primary Care Provider Unavailabl e Encounter Details Date Type Department Care Team (Late st Contact Info) Description 07/01/2013 Documentation [facility] [place] [address] [place] [address] Family Medicine, Physician [address] [place] [address] Social History Tobacco Use Types Packs/Day Years [...]
--- OUTSIDE RECORDS SUMMARY | 2024-10-29 16:46 | XMS_ITS | Encounter Summary ---
Author Organization [facility] Address [address] [place] [address] Phone Care Team Providers Care Machine Binding Folder Name Role Phone Unavailable Primary Care Provider Unavailabl e Encounter Details Date Type Department Care Team (Late st Contact Info) Description 07/01/2013 Documentation [facility] [place] Family [place] [address] [place] [address] Family Medicine, Physician [address] [place] [address] Social History Tobacco Use Types Packs/Day Years [...]
--- OUTSIDE RECORDS SUMMARY | 2024-10-29 16:46 | XMS_ITS | Encounter Summary ---
Author Organization [facility] Address [address] [place] [address] Phone Care Team Providers Care Claims Director Name Role Phone Unavailable Primary Care Provider Unavailabl e Encounter Details Date Type Department Care Team (Late st Contact Info) Description 07/03/2014 [place]ation [facility] [place] [address] [place] [address] Family Medicine, Physician [address] [place] [address] Social History Tobacco Use Types Packs/Day Years [...]
--- OUTSIDE RECORDS SUMMARY | 2024-10-29 16:46 | XMS_ITS | Encounter Summary ---
Author Organization [facility] Address [address] [place] [address] Phone Care Team Providers Care Steel Hanger Name Role Phone Unavailable Primary Care Provider Unavailabl e Encounter Details Date Type Department Care Team (Late st Contact Info) Description 05/30/2011 Documentation [facility] [place] [address] [place] [address] Family Medicine, Physician [address] [place] [address] Social History Tobacco Use Types Packs/Day Years [...]
--- OUTSIDE RECORDS SUMMARY | 2024-10-29 16:46 | XMS_ITS | Encounter Summary ---
Author Organization [facility] Address [address] [place] [address] Phone Care Team Providers Care Meat Soaker Name Role Phone Unavailable Primary Care Provider Unavailabl e Encounter Details Date Type Department Care Team (Late st Contact Info) Description 07/23/2013 Documentation [facility] [place] [address] [place] [address] Family Medicine, Physician [address] [place] [address] Social History Tobacco Use Types Packs/Day Years [...]
--- OUTSIDE RECORDS SUMMARY | 2024-10-29 16:46 | XMS_ITS | Encounter Summary ---
Author Organization [facility] Address [address] [place] [address] Phone Care Team Providers Care Financial Associate Name Role Phone Unavailable Primary Care Provider Unavailabl e Encounter Details Date Type Department Care Team (Late st Contact Info) Description 05/30/2011 Documentation [facility] [place] Family Medicine [address] [place] [address] Family Medicine, Physician [address] [place] [address] Social History Tobacco Use Types Packs/Day Years [...]
--- OUTSIDE RECORDS SUMMARY | 2024-10-29 16:46 | XMS_ITS | Encounter Summary ---
Author Organization [facility] Address [address] [place] [address] Phone Care Team Providers Care Er Medical Technician Name Role Phone Unavailable Primary Care Provider Unavailabl e Encounter Details Date Type Department Care Team (Late st Contact Info) Description 05/30/2011 Documentation [facility] Family Medicine [address] [place] [address] Family Medicine, Physician [address] [place] [address] Social History Tobacco Use Types Packs/Day Years [...]
--- OUTSIDE RECORDS SUMMARY | 2024-10-29 16:46 | XMS_ITS | Encounter Summary ---
Author Organization [facility] Address [address] [place] [address] Phone Care Team Providers Care Optical Design Engineer Name Role Phone Unavailable Primary Care Provider Unavailabl e Encounter Details Date Type Department Care Team (Late st Contact Info) Description 06/05/2012 Documentation [facility] [place] Family Medicine [address] [place] [address] Family Medicine, Physician [address] [place] [address] Social History Tobacco Use Types Packs/Day Years [...]
--- OUTSIDE RECORDS SUMMARY | 2024-10-29 16:46 | XMS_ITS | Encounter Summary ---
Author Organization [facility] Address [address] [place] [address] Phone Care Team Providers Care Room Service Waiter Name Role Phone Unavailable Primary Care Provider Unavailabl e Encounter Details Date Type Department Care Team (Late st Contact Info) Description 07/01/2013 Documentation [facility] [place] Family Medicine [address] [place] [address] Family Medicine, Physician [address] [place] [address] Social History Tobacco Use Types Packs/Day Years [...]
--- OUTSIDE RECORDS SUMMARY | 2024-10-29 16:46 | XMS_ITS | Encounter Summary ---
Author Organization [facility] Address [address] [place] [address] Phone Care Team Providers Care Supervisor Costuming Name Role Phone Unavailable Primary Care Provider Unavailabl e Encounter Details Date Type Department Care Team (Late st Contact Info) Description 11/28/2014 Documentation [facility] [place] [address] [place] [address] Family Medicine, Physician [address] [place] [address] Social History Tobacco Use Types Packs/Day Years [...]
--- OUTSIDE RECORDS SUMMARY | 2024-10-29 16:46 | XMS_ITS | Encounter Summary ---
Author Organization [facility] Address [address] [place] [address] Phone Care Team Providers Care Targeteer Name Role Phone Unavailable Primary Care Provider Unavailabl e Encounter Details Date Type Department Care Team (Late st Contact Info) Description 11/10/2015 Documentation [facility] [place] Family Medicine [address] [place] [address] Family Medicine, Physician [address] [place] [address] Social History Tobacco Use Types Packs/Day Years [...]
[2024-10-30 07:34] LABS: CT PCR NOT DETECTED (Not Detect.); NG PCR NOT DETECTED (Not Detect.)
[2024-10-30 11:49] LABS: Bacterial Vaginosis PCR NEGATIVE (Negative); Candida Group PCR NOT DETECTED (Not Detect); Candida glab krusei PCR NOT DETECTED (Not Detect); Trichomonas vaginalis PCR NOT DETECTED (Not Detect)
[2024-11-06 10:50] LABS: HPV Genotype 16 Negative (Negative); HPV Genotype 18 Negative (Negative); HPV High Risk Positive (Negative)
== END 2024-10-29 09:58 | disposition home or self-care (01) ==
LOC: HO.LNP 09:57
PROVIDERS: PCP Nurse Practitioner Family; Visit Provider Advanced Practice Midwife
DX: Z01.419 Encounter for gynecological examination (general) (routine) without abnormal findings (principal)
CPT/HCPCS: 81515; 87491; 87591; 87626; 88175

== ENCOUNTER 2024-10-29 09:57 | Outpatient (AMB) | payer OTHER, SELFPAY ==
--- NOTE | 2024-10-29 10:01 | MHC.OFFVIS ---
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 Pmo Manager: Pmo Manager Present (Katt) Accompanied by: Self / Same As Patient Allergies latex Adverse Reaction (Verified 10/29/24 10:13) Rash Medication List - Last Reconciled 10/29/24 by Tonie Esquivel CNM [id number]-daxoisjxmxn-[id number] 8-1-1 % 1 mL topical BID 30 days hydroxyzine pamoate 25 mg PO DAILY PRN lamotrigine (Lamictal) 50 mg (2 x 25 mg) PO DAILY magnesium oxide 400 mg PO BEDTIME 30 days mecobalamin (vitamin B12) 1,000 mcg PO DAILY naratriptan take 1/2 - 1 tab at onset of headache; if no relief may repeat 1 tab after at least 4 hrs; max = 2 tabs/24 hrs orally PRN; 30 days norethindrone (contraceptive) 0.35 mg PO DAILY ondansetron 4 - 8 mg (1 - 2 x 4 mg) PO Q4-6H PRN 30 days propranolol ER 60 mg PO BEDTIME 30 days riboflavin (vitamin B2) 400 mg PO DAILY 90 days spironolactone 50 mg PO BID tretinoin 0.025% 1 appl topical BEDTIME Is last menstrual period known: Yes Last menstrual period: 10/18/24 Post menopausal: No Patient : No HPI HPI 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 She ran out of control pills at the end of the last pack so she definitely needs a refill she got a period that started on October 17 or , she had sex with her boyfriend on the with a condom fell off as he was coming out. And she had sex again with a condom that is stayed on on October 26 she is anxious about an unplanned . 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 She is not having any other health concerns she sees her pmo project manager for her skin concerns and is on some medications for that. She had a abnormal Pap that showed ASCUS with positive HPV in 2018, and her Pap smear with HPV co testing was negative last year. she would like a Pap smear to be done as a precaution as she is anxious about this. she did have the Gardasil series as a young person. 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 Current occupational exposures/hazards: No Cognitive needs: No Hearing needs: No Vision needs: No Female Reproductive History Menstrual Age of Menarche: 13 Duration of menses: 3-5 days Date of last menstrual period: 10/18/24 control method: pills Total pregnancies: 0 Date of last pap smear: 10/18/23 (negative pap smear, negative hpv ) History of abnormal pap smear: Yes (ASCUS +HPV) History of STI: No Physical Exam Vital Signs: Last Vital Signs BP 114/68 10/29/24 10:16 BMI result Body Mass Index 21.4 Const General: healthy appearing, comfortable, no acute distress, well developed and alert Nutritional Appearance: average body habitus Orientation/consciousness: patient oriented x3 Limitations: no limitations HEENT Head: Yes normocephalic Neck Neck: Yes normal visual inspection Chest Chest palpation & inspection: normal inspection of the chest Breast/axilla inspection: normal inspection of the breasts and normal inspection of the axillae Breast/axilla palpation: normal palpation of the breasts and normal palpation of the axillae Resp Effort & Inspection: normal respiratory effort GI Inspection: Yes normal to inspection, No Abdominal wall edema and No distended Palpation (GI): Soft to palpation and nontender Other: Patient is very fair complected vulva pink patient denies any itching or burning or anything. Vagina pink and moist cervix nulliparous pink smooth healthy appearing with whitish clear mucus. Pap done as well as testing for STIs cervix did bleed with Pap cervix long close thick mobile nontender uterus midposition mobile nontender adnexa nontender good tone with Kegel. General: Yes bladder normal to palpation External Female Exam: normal external appearance and normal appearance of the urethra Speculum Exam - Vagina: normal appearance of the vagina, normal palpation and normal vaginal discharge Speculum Exam - Cervix: normal appearance of the cervix, normal palpation and nontender Bimanual exam- vagina & uterus: normal bimanual exam, normal palpation, uterine size normal, bladder normal to palpation, consistency normal, normal palpation, uterine mobility normal, uterine shape normal, No Cervical tenderness present, non-tender and no cervical motion tenderness Bimanual Exam- Adnexa, other: normal adnexae, no masses, normal and No adnexal tenderness Neuro General: patient oriented x3 Results Reviewed Results Reviewed: September 2023 Pap is negative with negative HPV 2018 Pap done at [facility] was ASCUS with positive HPV. Assessment & Plan Assessment & Plan (1) Well woman exam with routine gynecological exam: Code(s): Z01.419 - Encounter for gynecological examination (general) (routine) without abnormal findings Category: Medical (2) Cervical cancer screening: Comment: hx of ascus, pos hpv in 2019; pap done 10/18/23.(patient is sure that she got the full Gardasil series. She says her boyfriend is going to get vaccinated soon). 10/18/2023 Pap is negative with negative HPV. 10/29/2024 Pap done. Code(s): Z12.4 - Encounter for screening for malignant neoplasm of cervix Category: Medical (3) control counseling: Comment: To restart OCPs with next menses. emergency contraception prescribed just in case. Code(s): Z30.09 - Encounter for other general counseling and advice on contraception Category: Medical Plan -----Discussed in this visit the following: healthy balanced diet, regular and consistent exercise, getting recommended health screens, doing the best she can for her particular health concerns, kegel exercises, pap smear screening and followup recommendations, mammography screening and SBE, normal changes in cycles in her life stage--- . Reviewed her history of when she had intercourse and with what circumstances just for her peace of mind the episodes of intercourse for on day 4 and day 10 of her cycle so somewhat low risk for an unintended but I did prescribe emergency contraception for her just in case for her to have available as for her the consult has a so the an unplanned would be great at this time. She is very clear she would [facility] if she needed to.. She is planning no unprotected intercourse until she can restart the pills with the beginning of her next cycle I have prescribed enough for over year as well as the emergency contraception. Her insurance did not cover regular Plan B so I prescribed alyse. Reviewed use of the control pills she feels like she is generally very good it was sent just that things got rescheduled and she ran out of pills discussed options for other long-term methods but she does not think she would be good with an IUD or a Nexplanon so she will stick with the pills. RTC 1 year. Her cervix did bleed with the Pap but it was within normal limits. Discussed the range of sensitivities of each of us. She was anxious in discussing any of the possible unforeseen circumstances, but feels like she is managing the stress well, and she had a small device to keep her fingers busy that helped her as well. rtc 1 yr Medications: New ulipristal (Alyse) Take MORA after unprotected intercourse. 30 mg PO ONCE 1 tab 1RF Refilled norethindrone (contraceptive) 0.35 mg PO DAILY 84 tabs 4RF Coding Level of Care Code Est Pt Prev Care 18-39y([id number]) Diagnoses Well woman exam with routine gynecological exam Z01.419 Cervical cancer screening Z12.4 control counseling Z30.09
[2024-10-29 10:16] VITALS: BP 114/68; BMI 21.4
--- OUTSIDE RECORDS SUMMARY | 2024-10-29 11:13 | XMS_ITS | Encounter Summary ---
Author Organization [facility] Address [address] [place] [address] Phone Care Team Providers Care Cabin Cleaner Name Role Phone Unavailable Primary Care Provider Unavailabl e Encounter Details Date Type Department Care Team (Late st Contact Info) Description 02/09/2017 Conversion Encounter [facility] - [address] [address] Social History Tobacco Use Types Packs/Day Years Used Date Smoking Tobacco: Never Comments:Never smoker Comments Unknown Sex and Gender Information Value Date Recorded Sex Assigned at Not on file Legal Sex Female 5:06 PM EDT Gender Identity Not on file Sexual Orientation Not on file documented as of this encounter Plan of Treatment Not on file documented as of this encounter Visit Diagnoses Not on filedocumented in this encounter
--- OUTSIDE RECORDS SUMMARY | 2024-10-29 11:13 | XMS_ITS | Encounter Summary ---
Author Organization [facility] Address [address] [place] [address] Phone Care Team Providers Care Tip Scourer Name Role Phone Unavailable Primary Care Provider Unavailabl e Encounter Details Date Type Department Care Team (Late st Contact Info) Description 06/05/2012 [place] [facility] [place] [address] [place] [address] Family Medicine, Physician [address] [place] [address] Social History Tobacco Use Types Packs/Day Years Used Date Smoking Tobacco: Never Assessed Comments Unknown Sex and Gender Information Value Date Recorded Sex Assigned at Not on file Legal Sex Female 5:06 PM EDT Gender Identity Not on file Sexual Orientation Not on file documented as of this encounter Plan of Treatment Not on file documented as of this encounter Visit Diagnoses Not on filedocumented in this encounter
--- OUTSIDE RECORDS SUMMARY | 2024-10-29 11:13 | XMS_ITS | Encounter Summary ---
Author Organization [facility] Address [address] [place] [address] Phone Care Team Providers Care Gravel Hauler Name Role Phone Unavailable Primary Care Provider Unavailabl e Encounter Details Date Type Department Care Team (Late st Contact Info) Description 11/28/2014 Documentation [facility] [place] [address] [place] [address] Family Medicine, Physician [address] [place] [address] Social History Tobacco Use Types Packs/Day Years [...]
--- OUTSIDE RECORDS SUMMARY | 2024-10-29 11:13 | XMS_ITS | Encounter Summary ---
Author Organization [facility] Address [address] [place] [address] Phone Care Team Providers Care Car Repairman Name Role Phone Unavailable Primary Care Provider Unavailabl e Encounter Details Date Type Department Care Team (Late st Contact Info) Description 07/01/2013 Documentation [facility] [place] [address] [place] [address] Family Medicine, Physician [address] [place] [address] Social History Tobacco Use Types Packs/Day Years [...]
--- OUTSIDE RECORDS SUMMARY | 2024-10-29 11:13 | XMS_ITS | Encounter Summary ---
Author Organization [facility] Address [address] [place] [address] Phone Care Team Providers Care Cripple Worker Name Role Phone Unavailable Primary Care Provider Unavailabl e Encounter Details Date Type Department Care Team (Late st Contact Info) Description 06/05/2012 [place] [facility] [place] [address] [place] [address] Family Medicine, Physician [address] [place] [address] Social History Tobacco Use Types Packs/Day Years [...]
--- OUTSIDE RECORDS SUMMARY | 2024-10-29 11:13 | XMS_ITS | Encounter Summary ---
Author Organization [facility] Address [address] [place] [address] Phone Care Team Providers Care Door Paneler Name Role Phone Unavailable Primary Care Provider Unavailabl e Encounter Details Date Type Department Care Team (Late st Contact Info) Description 07/03/2014 Documentation [facility] [place] [address] [place] [address] Family Medicine, Physician [address] [place] [address] Social History Tobacco Use Types Packs/Day Years [...]
--- OUTSIDE RECORDS SUMMARY | 2024-10-29 11:13 | XMS_ITS | Encounter Summary ---
Author Organization [facility] Address [address] [place] [address] Phone Care Team Providers Care Silverware Etcher Name Role Phone Unavailable Primary Care Provider Unavailabl e Encounter Details Date Type Department Care Team (Late st Contact Info) Description 05/30/2011 Documentation [facility] [place] [address] [place] [address] Family Medicine, Physician [address] [place] [address] Social History Tobacco Use Types Packs/Day Years [...]
--- OUTSIDE RECORDS SUMMARY | 2024-10-29 11:13 | XMS_ITS | Encounter Summary ---
Author Organization [facility] Address [address] [place] [address] Phone Care Team Providers Care Hat Checker Name Role Phone Unavailable Primary Care Provider Unavailabl e Encounter Details Date Type Department Care Team (Late st Contact Info) Description 07/03/2014 [place] [facility] [place] [address] [place] [address] Family Medicine, Physician [address] [place] [address] Social History Tobacco Use Types Packs/Day Years [...]
--- OUTSIDE RECORDS SUMMARY | 2024-10-29 11:13 | XMS_ITS | Encounter Summary ---
Author Organization [facility] Address [address] [place] [address] Phone Care Team Providers Care Development And Housing Director Name Role Phone Unavailable Primary Care Provider Unavailabl e Encounter Details Date Type Department Care Team (Late st Contact Info) Description 02/11/2017 Documentation [facility] [place] Family [place] [address] [place] [address] Family Medicine, Physician [address] [place] [address] Social History Tobacco Use Types Packs/Day Years [...]
--- OUTSIDE RECORDS SUMMARY | 2024-10-29 11:13 | XMS_ITS | Encounter Summary ---
Author Organization [facility] Address [address] [place] [address] Phone Care Team Providers Care Care Partner Name Role Phone Unavailable Primary Care Provider Unavailabl e Encounter Details Date Type Department Care Team (Late st Contact Info) Description 11/10/2015 Documentation [facility] [place] Family Medicine [address] [place] [address] Family Medicine, Physician [address] [place] [address] Social History Tobacco Use Types Packs/Day Years [...]
--- OUTSIDE RECORDS SUMMARY | 2024-10-29 11:13 | XMS_ITS | Encounter Summary ---
Author Organization [facility] Address [address] [place] [address] Phone Care Team Providers Care Solid Tire Finisher Name Role Phone Unavailable Primary Care Provider Unavailabl e Encounter Details Date Type Department Care Team (Late st Contact Info) Description 07/01/2013 Documentation [facility] [place] Family [place] [address] [place] [address] Family Medicine, Physician [address] [place] [address] Social History Tobacco Use Types Packs/Day Years [...]
--- OUTSIDE RECORDS SUMMARY | 2024-10-29 11:13 | XMS_ITS | Encounter Summary ---
Author Organization [facility] Address [address] [place] [address] Phone Care Team Providers Care Equity Research Analyst Name Role Phone Unavailable Primary Care Provider Unavailabl e Encounter Details Date Type Department Care Team (Late st Contact Info) Description 09/26/[address] [facility] [place] Medicine [address] [place] [address] Family Medicine, Physician [address] [place] [address] Social History Tobacco Use Types Packs/Day Years [...]
--- OUTSIDE RECORDS SUMMARY | 2024-10-29 11:13 | XMS_ITS | Encounter Summary ---
Author Organization [facility] Address [address] [place] [address] Phone Care Team Providers Care Database Tester Name Role Phone Unavailable Primary Care Provider Unavailabl e Encounter Details Date Type Department Care Team (Late st Contact Info) Description 07/03/2014 Documentation [facility] [place] [address] [place] [address] Family Medicine, Physician [address] [place] [address] Social History Tobacco Use Types Packs/Day Years [...]
--- OUTSIDE RECORDS SUMMARY | 2024-10-29 11:13 | XMS_ITS | Encounter Summary ---
Author Organization [facility] Address [address] [place] [address] Phone Care Team Providers Care Bail Bonding Agent Name Role Phone Unavailable Primary Care Provider Unavailabl e Encounter Details Date Type Department Care Team (Late st Contact Info) Description 07/23/2013 Documentation [facility] [place] [address] [place] [address] Family Medicine, Physician [address] [place] [address] Social History Tobacco Use Types Packs/Day Years [...]
--- OUTSIDE RECORDS SUMMARY | 2024-10-29 11:13 | XMS_ITS | Clinical Summary ---
Author Organization [facility] Address [address] [place] [address] Phone Care Team Providers Care Automatic Packer Operator Name Role Phone Unavailable Primary Care Provider Unavailabl e Immunizations Immunization Administration Dates Next Due DTaP 5 03/30/2001, 8,1996, 997,1996 H1N1 06/05/2009 HPV, Quadrivalent 02/04/2009,07/25/2008,04/28/20 08 Hep A, ped/adol 07/02/2014,06/28/2013 Hep B, ped/adol 1996,1996,1996 Hib (PRP-T) 07/03/1997, 7,1996, 996 IPV 03/30/2001 Influenza Split 05/17/2010 Influenza, injectable, trivalent 04/28/2008 Influenza, intranasal, quadrivalent 07/02/2014,0 06/28/2013 Influenza, intranasal, trivalent 06/04/2012,07/2010 MMR 03/30/2001,03/27/1997 Meningococcal Conj (Menactra) MCV4P 07/02/2014,1 06/27/2006 OPV 1996,1996,1996 Tdap 04/27/2007 Varicella 04/28/2008,10/01/1997 Family History Relation Name Status Comments Father Alive Father: Alive a nd well Mother Alive Mother: Asthma Other No family histo ry of *Heart Disease, No family history of *CVA/Stroke, No family history of *Thrombophilia, No family history of *Sudden /ND under 55, Family history of Obesity, Family history of Elevated cholesterol, Family history of *Dental caries, Family history of Diabetes mellitus, Family history of Strabismus Paternal Grandmother Paterna l grandmother: Diabetes mellitus Social History Tobacco Use Types Packs/Day Years Used Date Smoking Tobacco: Never Comments:Never smoker Comments Unknown Sex and Gender Information Value Date Recorded Sex Assigned at Not on file Legal Sex Female 5:06 PM EDT Gender Identity Not on file Sexual Orientation Not on file Last Filed Vital Signs Vital Sign Reading Time Taken Comments Blood Pressure 111/63 01/26/2017 12:00 AM EDT Pulse 87 01/26/2017 12:00 AM EDT Temperature 36.7 ??C (98 ??F) 11/09/2015 12:00 AM EDT Respiratory Rate - - Oxygen Saturation - - Inhaled Oxygen Concentration - - Weight 59.9 kg (132 lb) 01/26/2017 12:00 AM EDT Height 172 cm (5' 7.7 ) 01/26/2017 12:00 AM EDT Body Mass Index 20.25 01/26/2017 12:00 AM EDT Plan of Treatment Health Maintenance Due Date Last Done Comments DTaP,Tdap,and Td Vaccines (7 - Td or Tdap) 04/27/2017 04/27/2007, 03/30/2001, 10/01/1997, Additional history exists Influenza Vaccines (#1) 2024 07/02/19 15, 06/28/2013, 06/04/2012, Additional history exists COVID-19 Vaccine ( season) 2024 Hepatitis B Vaccines Completed 1996, 1996, 1996 HIB Vaccines Completed 07/03/1997, 09/24, 1996, Additional history exists IPV Vaccines Completed 03/30/2001, 09/24, 1996, Additional history exists MMR Vaccines Completed 03/30/2001, 03/27/1997 Varicella Vaccines Completed 04/28/2008, 10/01/1997 HPV Vaccines Completed 02/04/2009, 06/28, 04/28/2008 Hepatitis A Vaccines Completed 07/02/2014, 06/28/19 14 Meningococcal Vaccine Completed 07/02/2014, 11/02/2 007 Men B Vaccine Aged Out No longer elig ible based on patient's age to complete this topic Pneumococcal Vaccine Aged Out No long er eligible based on patient's age to complete this topic Procedures * Due to [place] [employer] law, this organization might not be sharing sensitive test results. Procedure Name Priority Date/Time Associated Diagnosis Comments CHLAMYDIA AND GONORRHEA, AMPLIFIED Routine 11/10/2015 2:04 PM EDT from Last 3 Months or Most Recently Relevant to Health Maintenance Results * Due to [place] [employer] law, this organization might not be sharing sensitive test results. * Chlamydia and Gonorrhoea, Amplified (11/10/2015 2:04 PM EDT) Pathologist [facility] URINE GC AMP PROBE NEGATIVE F [facility] Comment: No Neisseria Gonorrhoeae RNA detected in this patient's sample (REFERENCE RANGE/NORMAL VALUE: NOT DETECTED) NOTE: This test uses fresh foods technician-mediated amplification method to detect rRNA from C.Trachomatis and N.Gonorrhoeae. A negative result does not preclude infection. In the case of a negative urine result, testing of an endocervical(female) or urethral(male) specimen is recommended if there is high clinical suspicion of infection. The performance characteristics of this test have not been evaluated in children. The Aptima Combo2 assay is not intended for the evaluation of suspected sexual abuse or for other medico-legal indications. The ordering provider should assess if the patient had consensual sex without risk of sexual abuse. Consult the [facility] if needed. Contact phone number . Therapeutic failure or success cannot be determined with the Aptima Combo2 assay since nucleic acid may persist following appropriate antimicrobial therapy. The Centers for Disease Control and Prevention (CDC) recommends confirmatory retesting using culture or a different nucleic acid amplification test when positive results occur, if indicated. Testing performed or reported by [facility], a Service of [facility], [place] [address] CLIA ??[id number] Kleber Estevez MD, PhD, Textile Designs Sales Representative URINE CHLAMYDIA AMP PROBE NEGATIVE [facility] Comment: No Chlamydia Trachomatis RNA detected in this patient's sample (REFERENCE RANGE/NORMAL VALUE: NOT DETECTED) 11/10/2015 2:04 PM EDT Narrative [facility] - 11/10/2015 2:04 PM EDT URINE CHLAMYDIA GC AMP PROBE us Rosibel Sargent MD LAB MICROBIOLOGY - GENERAL O RDERABLES Final Result [facility] [address] [place] [address], [place] from Last 3 Months or Most Recently Relevant to Health Maintenance
--- OUTSIDE RECORDS SUMMARY | 2024-10-29 11:13 | XMS_ITS | Encounter Summary ---
Author Organization [facility] Address [address] [place] [address] Phone Care Team Providers Care Business Intelligence Administrator Name Role Phone Unavailable Primary Care Provider Unavailabl e Encounter Details Date Type Department Care Team (Late st Contact Info) Description 07/01/2013 Documentation [facility] [place] [address] [place] [address] Family Medicine, Physician [address] [place] [address] Social History Tobacco Use Types Packs/Day Years [...]
--- OUTSIDE RECORDS SUMMARY | 2024-10-29 11:13 | XMS_ITS | Encounter Summary ---
Author Organization [facility] Address [address] [place] [address] Phone Care Team Providers Care Figure Skater Name Role Phone Unavailable Primary Care Provider Unavailabl e Encounter Details Date Type Department Care Team (Late st Contact Info) Description 07/01/2013 Documentation [facility] [place] [address] [place] [address] Family Medicine, Physician [address] [place] [address] Social History Tobacco Use Types Packs/Day Years [...]
--- OUTSIDE RECORDS SUMMARY | 2024-10-29 11:13 | XMS_ITS | Encounter Summary ---
Author Organization [facility] Address [address] [place] [address] Phone Care Team Providers Care Engineered Wood Designer Name Role Phone Unavailable Primary Care Provider Unavailabl e Encounter Details Date Type Department Care Team (Late st Contact Info) Description 05/30/2011 Documentation [facility] [place] [address] [place] [address] Family Medicine, Physician [address] [place] [address] Social History Tobacco Use Types Packs/Day Years [...]
--- OUTSIDE RECORDS SUMMARY | 2024-10-29 11:13 | XMS_ITS | Encounter Summary ---
Author Organization [facility] Address [address] [place] [address] Phone Care Team Providers Care Conference Services Coordinator Name Role Phone Unavailable Primary Care Provider Unavailabl e Encounter Details Date Type Department Care Team (Late st Contact Info) Description 05/30/2011 [place]ation [facility] [place] [address] [place] [address] Family Medicine, Physician [address] [place] [address] Social History Tobacco Use Types Packs/Day Years [...]
--- OUTSIDE RECORDS SUMMARY | 2024-10-29 11:13 | XMS_ITS | Encounter Summary ---
Author Organization [facility] Address [address] [place] [address] Phone Care Team Providers Care Sports Team Manager Name Role Phone Unavailable Primary Care Provider Unavailabl e Encounter Details Date Type Department Care Team (Late st Contact Info) Description 07/03/2014 Documentation [facility] [place] [address] [place] [address] Family Medicine, Physician [address] [place] [address] Social History Tobacco Use Types Packs/Day Years [...]
--- OUTSIDE RECORDS SUMMARY | 2024-10-29 11:13 | XMS_ITS | Encounter Summary ---
Author Organization [facility] Address [address] [place] [address] Phone Care Team Providers Care Latexer Name Role Phone Unavailable Primary Care Provider Unavailabl e Encounter Details Date Type Department Care Team (Late st Contact Info) Description 11/10/2015 Documentation [facility] [place] Family Medicine [address] [place] [address] Family Medicine, Physician [address] [place] [address] Social History Tobacco Use Types Packs/Day Years [...]
== END 2024-10-29 11:32 | disposition home or self-care (01) ==
LOC: HO.HWSM 09:57
PROVIDERS: PCP Nurse Practitioner Family; Visit Provider Advanced Practice Midwife
DX: Z01.419 Encounter for gynecological examination (general) (routine) without abnormal findings (principal)
CPT/HCPCS: 99395; 99459

== ENCOUNTER 2024-11-27 07:53 | Outpatient (AMB) | payer OTHER, SELFPAY ==
--- OUTSIDE RECORDS SUMMARY | 2024-11-27 07:56 | XMS_ITS | Encounter Summary ---
Author Organization [facility] Address [address] [place] [address] Phone Care Team Providers Care Club Waiter/Waitress Name Role Phone Unavailable Primary Care Provider Unavailabl e Encounter Details Date Type Department Care Team (Late st Contact Info) Description 07/01/2013 Documentation [facility] [place] Family Medicine [address] [place] [address] Family Medicine, Physician [address] [place] [address] Social History Tobacco Use Types Packs/Day Years [...]
--- NOTE | 2024-11-27 08:21 | MHC.OFFVIS ---
Intake Visit Reasons: Colposcopy Oval Or Circular Glass Cutter: Oval Or Circular Glass Cutter Present (Tessa Bolivar) Accompanied by: Self / Same As Patient Allergies latex Adverse Reaction (Verified 11/27/24 08:21) Rash HPI Comments Details: Presenting for abnormal Pap smear showing ASC- H/ HPV positive, HPV 16/18 negative [facility] Medical History Eczema Migraines Surgical History No pertinent past surgical history Family History Other Mental health disorder Substance abuse Social History Household Members: Family Housing: Apartment Alcohol intake: current Alcohol intake frequency: 3 or more drinks per day Patient Tobacco Use Status: Never used Tobacco Tobacco use type: Smokeless Tobacco e-Cigarette/Vaping Use: Former Use service: No Current occupational status: employed 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 We thoroughly discussed the procedure itself, including its details, alternatives, and all associated risks. This included but not limited to the following complications such as bleeding, infection, and injury to the vagina, bladder, and vessels, as well as the potential need for transfusion with all its associated risks. Subsequently, the patient sign the consent. Pap smear result: Asc can not rule out high-grade HPV positive, HPV 16/18 negative Urine test in office = Negative Procedure: During the procedure, the following steps were performed: A speculum was inserted, and acetic acid was applied. Colposcopy was conducted, allowing visualization of the transformation zone. Acetowhite lesions were identified at the 3+5+6+7+9+11+12+1 o'clock position. Cervical biopsies were obtained from the 3+5+6+7+9+11+12+ o'clock position, followed by an endocervical curettage (ECC). Vaginoscopy of the upper vagina revealed no evidence of aceto-white lesions. Hemostasis was achieved using Monsel solution, and the patient tolerated the procedure well. Post-Procedure Instructions: The patient was advised to promptly contact the office or the after hours answering service or go to the emergency room if experiencing a temperature exceeding 100.4?F, abdominal pain, nausea/vomiting, or bleeding. Additionally, the patient was instructed to abstain from vaginal intercourse and bathtub use. The patient confirmed understanding of these instructions. Discharge Instructions: The patient was instructed to schedule a follow-up appointment in 2 weeks for further evaluation and management. Please note that this note was generated using a voice recognition program, and errors may have occurred during lightning protection installer. [id number] of cervix including upper vagina with biopsy and ECC Procedure code (CPT) selection complete Assessment & Plan Assessment & Plan (1) Pap smear of cervix with ASCUS, cannot exclude HGSIL: Comment: HPV high-risk positive, HPV 16/18 negative Code(s): R87.611 - Atypical squamous cells cannot exclude high grade squamous intraepithelial lesion on cytologic smear of cervix (ASC-H) Category: Medical Plan: Discussed with the patient the result of her abnormal pap, its significance, risk of progression, persistence, and regression. the false positive/negative rate of a Pap smear as a screening test in detecting cervical cancer and the indication for a diagnostic test -colposcopy, biopsy, endocervical curettage. The patient verbalized understanding and agreed with the plan, all questions answered. Colposcopy, biopsy /ECC done, see procedure note Orders: Orders AMB Colposcopy Today R87.611 - Atypical squamous cells cannot exclude high grade squamous intraepithelial lesion on cytologic smear of cervix (ASC-H) Coding Level of Care Code Procedure Only Diagnoses Pap smear of cervix with ASCUS, cannot exclude HGSIL R87.611 CPT Codes Colposcopy - CPT: 39378-[id number] of cervix including upper vagina with biopsy and ECC ([id number])
== END 2024-11-27 08:51 | disposition home or self-care (01) ==
LOC: HO.HWS 07:53
PROVIDERS: PCP Nurse Practitioner Family; Visit Provider Obstetrics & Gynecology
DX: R87.611 Atypical squamous cells cannot exclude high grade squamous intraepithelial lesion on cytologic smear of cervix (ASC-H) (principal)
CPT/HCPCS: 57454

== ENCOUNTER 2024-11-27 07:53 | Outpatient (REF) | payer OTHER, SELFPAY | END 2024-11-27 07:54 | disposition home or self-care (01) | LOC: HO.LNP 07:53 | PROVIDERS: PCP Nurse Practitioner Family; Visit Provider Obstetrics & Gynecology | DX: R87.611 Atypical squamous cells cannot exclude high grade squamous intraepithelial lesion on cytologic smear of cervix (ASC-H) (principal) | CPT/HCPCS: 57454; 88305; 88341; 88342 ==

== ENCOUNTER 2024-12-02 14:57 | Outpatient (AMB) | payer OTHER, SELFPAY ==
[2024-12-02 15:01] VITALS: BP 102/78; BMI 21.4
--- NOTE | 2024-12-02 15:01 | MHC.OFFVIS ---
Vital Signs 12/02/24 15:01 Height 5 ft 9 in Weight 145 lb BMI 21.4 BP 102/78 Intake Visit Reasons: Colpo results/?pre op Gis Engineer: Gis Engineer Present Allergies latex Adverse Reaction (Verified 11/27/24 08:21) Rash Is last menstrual period known: Yes Last menstrual period: 04/23/20 Post menopausal: No Patient : No Do you need a note to return to daycare/school/sports/work: Yes (for surgery on monday) HPI Comments Details: Presenting post colpo for follow-up. The patient is doing well with no complaints. The pathology showed the following: A. Endocervix, curettage: Few fragments of benign endocervical glands, negative for squamous intraepithelial lesion. B. Cervix, 1 o'clock, biopsy: Fragment of benign endocervical mucosa; no squamous component seen; negative for squamous intraepithelial lesion. C. Cervix, 3 o'clock, biopsy: Fragment of inflamed endocervical mucosa; no squamous component seen; negative for squamous intraepithelial lesion. D. Cervix, 5 o'clock, biopsy: Fragment of inflamed endocervical mucosa; no squamous component seen; negative for squamous intraepithelial lesion. E. Cervix, 6 o'clock, biopsy: Fragment of inflamed endocervical mucosa; no squamous component seen; negative for squamous intraepithelial lesion. F. Cervix, 7 o'clock, biopsy: Fragment of inflamed endocervical mucosa; no squamous component seen; negative for squamous intraepithelial lesion. G. Cervix, 9 o'clock, biopsy: High grade squamous intraepithelial lesion (MEG 2) involving endocervical glands. H. Cervix, 11 o'clock, biopsy: Fragment of inflamed endocervical mucosa; no squamous component seen; negative for squamous intraepithelial lesion. I. Cervix, 12 o'clock, biopsy: High grade squamous intraepithelial lesion (MEG 2) involving endocervical glands. COMMENT: The atypical cells noted on the patient's previous Pap ([id number]; ASC-H; HPV+) correlate with the current biopsy material [facility] Medical History Eczema Migraines Surgical History No pertinent past surgical history Family History Other Mental health disorder Substance abuse Social History Household Members: Family Housing: Apartment Alcohol intake: current Alcohol intake frequency: 3 or more drinks per day Patient Tobacco Use Status: Never used Tobacco Tobacco use type: Smokeless Tobacco e-Cigarette/Vaping Use: Former Use service: No Current occupational status: employed 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 Current occupational exposures/hazards: No Cognitive needs: No Hearing needs: No Vision needs: No Female Reproductive History Menstrual Age of Menarche: 13 Date of last menstrual period: 04/23/20 Total pregnancies: 2 Full term: 2 Review of Systems Card Reports as per HPI and Reports no additional complaints Resp Reports as per HPI and Reports no additional complaints GI Reports as per HPI and Reports no additional complaints Reports as per HPI Physical Exam Vital Signs: Last Vital Signs BP 102/78 12/02/24 15:01 BMI result Body Mass Index 21.4 Const General: cooperative, healthy appearing and comfortable Chest Chest palpation & inspection: normal inspection of the chest and normal palpation of entire chest wall Breast/axilla inspection: normal inspection of the breasts and normal inspection of the axillae Breast/axilla palpation: normal palpation of the breasts, normal palpation of the axillae and no axillary lymphadenopathy Resp Effort & Inspection: normal respiratory effort Auscultation: clear to auscultation bilaterally Percussion: percussion normal Cardio Palpation: normal PMI Rate: regular rate Rhythm: regular rhythm Heart sounds: no murmurs and no rubs Peripheral pulses: Peripheral pulses 2+ throughout GI Inspection: Yes normal to inspection Palpation (GI): Soft to palpation, nontender, no guarding, not rigid and No hepatosplenomegaly present Percussion: Yes normal to percussion Auscultation: normal bowel sounds Rectal Exam - Female: deferred Assessment & Plan Assessment & Plan (1) MEG II (cervical intraepithelial neoplasia II): Code(s): N87.1 - Moderate cervical dysplasia Category: Medical Plan: Discussed with the patient the pathology results of the colposcopy biopsies & endocervical curettage ( moderate dysplasia-MEG 2). Discussed with the patient the sensitivity specificity, positive and negative predictive value in detecting cervical cancer in addition discussed the regression, persistence and progression rates. Addition discussed with the patient the risk of progression to cancer and impact of excision procedure on her future . Per ASCCP guidelines, 2 options of management were discussed with the patient including either observation with HPV based screening and colposcopy biopsy at 6 months and 12 months versus a diagnostic excisional procedures, which is the preferred method of management. The patient is concerned more about the progression of MEG 2 to cancer than the excisional procedure impact on her future and she decided to proceed with a LEEP, possible cone with post cone ECC, all the pros and cons and risks and benefits of the procedure were discussed with the patient, the patient verbalized understanding and agreed with the plan Will proceed with LEEP possible cone was post cone ECC. Discussed with the patient the procedure, its benefits and risks including bleeding, infection, possible need for blood transfusion with all its risk ( HIV, syphilis, Hepatitis, anaphylaxis shock, others..), injury to bladder, rectum, possible re-excision for positive margins, potential need for hysterectomy, possible future negative impact on fertility including ( cervical stenosis, incompetence , increase risk for c section 2ndary to cervical scarring and failure of dilatation), possible positive margin necessitating re-excision. Also discussed the patient options of anesthesia either paracervical block versus IV sedation/MAC, prefers to proceed with IV sedation/MAC. All questions answered, the patient verbalized understanding and signed the consent. Coding Level of Care Code Est Pt Level 3 (05831) Diagnoses MEG II (cervical intraepithelial neoplasia II) N87.1
--- OUTSIDE RECORDS SUMMARY | 2024-12-02 16:44 | XMS_ITS | Encounter Summary ---
Author Organization [facility] Address [address] [place] [address] Phone Care Team Providers Care Council On Aging Director Name Role Phone Unavailable Primary Care Provider Unavailabl e Encounter Details Date Type Department Care Team (Late st Contact Info) Description 07/01/2013 Documentation [facility] [place] Family Medicine [address] [place] [address] Family Medicine, Physician [address] [place] [address] Social History Tobacco Use Types Packs/Day Years [...]
== END 2024-12-02 15:37 | disposition home or self-care (01) ==
LOC: HO.HWS 14:57
PROVIDERS: PCP Nurse Practitioner Family; Visit Provider Obstetrics & Gynecology
DX: N87.1 Moderate cervical dysplasia (principal)
CPT/HCPCS: 99213

== ENCOUNTER → 2024-12-02 14:57 | Outpatient (BNVA) | payer OTHER, SELFPAY | PROVIDERS: PCP Nurse Practitioner Family; Visit Provider Obstetrics & Gynecology ==

== ENCOUNTER 2024-12-06 09:23 | Day surgery (SDC) | payer OTHER, SELFPAY ==
--- OUTSIDE RECORDS SUMMARY | 2024-12-05 15:50 | XMS_ITS | Encounter Summary ---
Author Organization [facility] Address [address] [place] [address] Phone Care Team Providers Care Medicine Assistant Name Role Phone Unavailable Primary Care Provider Unavailabl e Encounter Details Date Type Department Care Team (Late st Contact Info) Description 07/01/2013 Documentation [facility] [place] [address] [place] [address] Family Medicine, Physician [address] [place] [address] Social History Tobacco Use Types Packs/Day Years [...]
[2024-12-06 09:53] VITALS: BMI 22.6
[2024-12-06 10:00] LABS: UPreg QC Valid YES
--- NOTE | 2024-12-06 10:02 | HO.ANESPROP2 ---
HPI - Anesthesia Eval Consult details Narrative: leep and cone PMFSH Active Problems Active Problems: All Active Problems MEG II (cervical intraepithelial neoplasia II) (Acute) Pap smear of cervix with ASCUS, cannot exclude HGSIL (Acute) control counseling (Acute) Influenza vaccination declined (Acute) Dysuria (Acute) Facial paresthesia (Acute) Migraine with aura (Acute) Left-sided headache (Acute) B12 deficiency due to diet (Acute) Adult general medical exam (Acute) Migraines (Acute) Cervical cancer screening (Acute) Well woman exam with routine gynecological exam (Acute) Onychomycosis (Acute) Adult acne (Acute) Seasonal allergies (Acute) Normal physical exam (Acute) Bipolar 2 disorder (Acute) Post-traumatic stress disorder, unspecified (Acute) Alcohol use disorder, moderate, dependence (Acute) Past Medical History Medical History Eczema Migraines Family History Family History Other Mental health disorder Substance abuse Family history of problems with anesthesia: No Surgical History Surgical History No pertinent past surgical history History of Problems with Anesthesia: No Social History Social History Household Members: Family Housing: Apartment Alcohol intake: current Alcohol intake frequency: 3 or more drinks per day Patient Tobacco Use Status: Never used Tobacco Tobacco use type: Smokeless Tobacco e-Cigarette/Vaping Use: Former Use Advance Directives: No Advance Directives Information Provided: Yes service: No Current occupational status: employed 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 Current occupational exposures/hazards: No Cognitive needs: No Hearing needs: No Vision needs: No Meds Allergies Allergy/AdvReac Type Severity Reaction Status Date / Time latex AdvReac Rash Verified 12/06/24 09:58 Home Medications ?Medication ?Instructions ?Recorded ?Confirmed ?Last Taken ?Type hydroxyzine pamoate 25 mg capsule 25 mg PO DAILY PRN Anxiety 05/01/24 12/06/24 Unknown History Exam Height,Weight and Vital Signs: Height 5 ft 9 in Weight 69.49 kg Airway Mallampati Class: II TM Dist: >3cm Neck ROM: Full Heart: rrr Lungs: cta Assessment and Plan Assessment Anesthesia Assessment: Anesthesia Plan Discussed and Chart Reviewed Final Anesthetic Review Family History of Problems with Anesthesia: No History of Problems with Anesthesia: No NPO: Yes ASA Class: II (stopped vaping 2 weeks ago) Final Preanesthetic Review: No Changes in Pt Med Stat, Meds/Allgs Chart Reviewed, Consent Obtained/Reviewed and Anes Risks/Benef Reviewed Patient Risk: Low Procedure Risk: Low Anesthetic Plan Anesthetic Plan: GA Disposition: Standard PACU
[2024-12-06 10:03] LABS: Urine Pregnancy NEGATIVE (NEGATIVE)
[2024-12-06 10:12] VITALS: BP 114/69; PULSE 83; RESP 18; TEMP 36.8; O2SAT 100
[2024-12-06] MEDS: Lactated Ringers 1,000 ML 80 ML IVCONT (10:36)
--- NOTE | 2024-12-06 10:51 | MHC.SHP ---
Pre-Procedural Eval Section A - 24 Hr Update-Section A only Date of Service: 12/06/24 The patient is an INPATIENT: No Changes since office visit: No Cold of Flu in the past 2 weeks, No New Medical Problems, No Changes in Medication and No Patient answered all questions The patient has been examined within 24 hours of the surgical procedure. The History & Physical has been completed within 30 days and I have reviewed it.: Yes Section B - Complete if H&P > 30 days Chief Complaint: Moderate cervical dysplasia Allergies: Allergies Allergy/AdvReac Type Severity Reaction Status Date / Time latex AdvReac Rash Verified 12/06/24 09:58 Plan Diagnosis/Plan: Unchanged I have reviewed the history and physical and performed a pertinent physical examination on my patient. No changes have occurred unless specified. Time Spent With Patient Time: Total time managing care of this patient today ____ minutes.
--- NOTE | 2024-12-06 11:30 | W.PM.OPN ---
Operative Note Operative Note Date of Service: 12/06/24 Narrative: Pre op diagnosis: MEG 2 Operation: Colposcopy, Loop electrical excision procedure , endocervical excision, post LEEP ECC Postop diagnosis: the same Quantitative blood loss: 50 cc Surgeon: Venkata Milton MD, FACOG Acetylene Gas Compressor: None Pathology: Cervical LEEP, endo cervical excision, post LEEP endo cervical curettage Complications: none Anesthesia: GLMA and Para cervical block Procedure: The patient was put in a dorsal lithotomy position, scrubbed and draped in the usual sterile fashion. A speculum was inserted inside the patient's vagina. The cervix is assessed using the colposcope with acetic acid , the lesions were seen, and at least 1 cm of the squamocolumnar junction was observed. 20 x 5 mm size loop was selected based upon the diameter of the lesion. Lugol solution was used to outline the lesions and area of the transformation zone order to be removed 10 cc of xylocaine with epinephrine were injected submucosally into the surface of the cervix (ectocervix) at the 3, 6, 9, and 12 o'clock positions. The electrosurgical generator is set at 40 de [place] rosa on blend 1. The loop is carefully passed simultaneously around and under the transformation zone, in order to ensure excising it making sure the lesion is at least 5 mm far from the specimen margins . The loop was allowed to glide through the cervix from one side to the other, allowing the cutting current to divide the tissue. Additional tissue was excised from this area with a smaller-diameter loop , endo cervical top-hat excision was performed An endo cervical curettage is performed following completion of excision, and hemostasis is obtained with a Ball electrode or regular tip cautery. At the end, Monsel's solution was applied to the cone bed. The patient tolerated the procedure well and, all instruments were taken out of the patient vaginal cavity, and the patient was transferred to the PACU in stable condition.
--- NOTE | 2024-12-06 11:31 | P.BOP_ITS ---
Brief Operative Note Date of Service: 12/06/24 Pre-op diagnosis: MEG 2 Post-op diagnosis: same Procedure: LEEP , endocervical excision with post CONE ECC Surgeon: Venkata Milton MD Anesthesia: GLMA and other (Paracervical block) Was an Scientist Engineer used for this Procedure?: No Estimated blood loss (mL): 0 Pathology: other (Cervical LEEP, endocervicix, Post LEEP ECC) Condition: stable Disposition: other (Home)
[2024-12-06 11:34] VITALS: BP 124/61; PULSE 70; RESP 12; TEMP 36.1; O2SAT 97
[2024-12-06 11:49] VITALS: BP 122/57; PULSE 100; RESP 16; O2SAT 98
[2024-12-06 12:01] VITALS: BP 122/69; PULSE 98; RESP 16; TEMP 36.6; O2SAT 99
== END 2024-12-06 12:30 | disposition home or self-care (01) ==
PROVIDERS: PCP Nurse Practitioner Family; Visit Provider Obstetrics & Gynecology
PROC: 0UBC7ZZ Excision of Cervix, Via Natural or Artificial Opening (ICD-10-PCS; CPT 57522; principal; 2024-12-06 13:10)
DX: N87.1 Moderate cervical dysplasia (principal); L30.9 Dermatitis, unspecified; G43.909 Migraine, unspecified, not intractable, without status migrainosus; Z79.899 Other long term (current) drug therapy; F17.290 Nicotine dependence, other tobacco product, uncomplicated; Z91.040 Latex allergy status
CPT/HCPCS: 57461; 81025; 88305; 88307; 88341; 88342; J1100; J1885; J2003; J2004; J2250; J2405; J2704; J3010

== ENCOUNTER → 2024-12-06 09:23 | Outpatient (BNV) | payer OTHER, SELFPAY | PROVIDERS: PCP Nurse Practitioner Family; Visit Provider Obstetrics & Gynecology | DX: N87.1 Moderate cervical dysplasia (principal) | CPT/HCPCS: 57461 ==

== ENCOUNTER 2024-12-17 14:39 | Outpatient (AMB) | payer OTHER, SELFPAY ==
--- NOTE | 2024-12-17 14:43 | A.OFFVIS_ITS ---
Vital Signs 12/17/24 14:45 Height 5 ft 9 in Weight 145 lb BMI 21.4 Intake Visit Reasons: post op Foam Tank Laminator Required: No Information Interpreted: non-clinical & clinical Accompanied by: Self / Same As Patient Allergies latex Adverse Reaction (Verified 12/17/24 14:45) Rash HPI Comments Details: The patient is presenting for follow-up post LEEP cone. The pathology showed the following: A. Cervix, LEEP conization: -Squamous and endocervical glandular mucosa with inflammation, and reactive and metaplastic changes; negative for dysplasia. -Extensive biopsy site changes. B. Endocervix, excision: -Endocervical glandular mucosa; negative for dysplasia; no squamous mucosa present. C. Endocervix, post cone curettage: -Endocervical glandular and squamous epithelium; negative for dysplasia PFSH Medical History Eczema Migraines Surgical History No pertinent past surgical history Family History Other Mental health disorder Substance abuse Social History Household Members: Family Housing: Apartment Are you a primary nursing care partner to a significant other at home: No Do you presently have visiting nurse or other home services: No Alcohol intake: current Alcohol intake frequency: 3 or more drinks per day Patient Tobacco Use Status: Current someday Tobacco user Tobacco use type: Smokeless Tobacco e-Cigarette/Vaping Use: Former Use service: No Current occupational status: employed 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 Current occupational exposures/hazards: No Cognitive needs: No Hearing needs: No Vision needs: No Female Reproductive History Menstrual Age of Menarche: 13 Review of Systems Const All systems reviewed & are unremarkable except as noted in HPI and below Reports as per HPI and Reports no additional complaints GI Reports no additional complaints Reports no additional complaints Physical Exam Vital Signs: BMI result Body Mass Index 21.4 Assessment & Plan Assessment & Plan (1) MEG II (cervical intraepithelial neoplasia II): Comment: Status post LEEP cone with post cone ECC with negative pathology Code(s): N87.1 - Moderate cervical dysplasia Category: Medical Plan: Discussed with the patient the results the pathology showing no evidence of residual disease, high-grade lesion, MEG 2+, as seen on colposcopic biopsy/ECC pathology. Explained to the patient that a completely negative excisional specimen raises concern that the lesion was missed and therefore should be follow-up. There is a significantly higher risk of recurrence of MEG 2+ or progression after LEEP Options of treatment including co testing/colposcopy cervical biopsy with ECC in six-months versus repeat excision Discussion about all the pros and cons and risks and benefits of each approach, including risk of recurrence of severe dysplasia were discussed with the patient and the patient decided to proceed with expectant management. Instructions given the patient to schedule 6 months co testing/colposcopy appointment. All questions answered, the patient verbalized understanding, Coding Level of Care Code Est Pt Level 3 (92432) Diagnoses MEG II (cervical intraepithelial neoplasia II) N87.1
[2024-12-17 14:45] VITALS: BMI 21.4
--- OUTSIDE RECORDS SUMMARY | 2024-12-17 17:52 | XMS_ITS | Encounter Summary ---
Author Organization [facility] Address [address] [place] [address] Phone Care Team Providers Care Hand Pleater Name Role Phone Unavailable Primary Care Provider Unavailabl e Encounter Details Date Type Department Care Team (Late st Contact Info) Description 07/01/2013 Documentation [facility] [place] Family Medicine [address] [place] [address] Family Medicine, Physician [address] [place] [address] Social History Tobacco Use Types Packs/Day Years [...]
== END 2024-12-17 15:31 | disposition home or self-care (01) ==
LOC: HO.HWS 14:39
PROVIDERS: PCP Nurse Practitioner Family; Visit Provider Obstetrics & Gynecology
DX: N87.1 Moderate cervical dysplasia (principal)
CPT/HCPCS: 99213

== ENCOUNTER 2025-01-31 08:12 | Outpatient (AMB) | payer OTHER, SELFPAY ==
--- NOTE | 2025-01-31 08:06 | A.OFFVIS_ITS ---
Intake Visit Reasons: 6 mnts f/u Manager Cargo Required: No Accompanied by: Self / Same As Patient Allergies latex Adverse Reaction (Verified 01/31/25 08:07) Rash Medication List - Last Reconciled 01/31/25 by SOFIA Barrera [id number] 8-1-1 % 1 mL topical BID 30 days hydroxyzine pamoate 25 mg PO DAILY PRN lamotrigine (Lamictal) 50 mg (2 x 25 mg) PO DAILY magnesium oxide 400 mg PO BEDTIME 90 days mecobalamin (vitamin B12) 1,000 mcg PO DAILY naratriptan take 1/2 - 1 tab at onset of headache; if no relief may repeat 1 tab after at least 4 hrs; max = 2 tabs/24 hrs orally PRN; 90 days norethindrone (contraceptive) 0.35 mg PO DAILY ondansetron 4 - 8 mg (1 - 2 x 4 mg) PO Q4-6H PRN 90 days propranolol ER 60 mg PO BEDTIME 90 days riboflavin (vitamin B2) 400 mg PO DAILY 90 days spironolactone 50 mg PO BID tretinoin 0.025% 1 appl topical BEDTIME ulipristal (Alyse) 30 mg PO ONCE HPI Comments Details: Right-handed 29-yr-old female presents for follow-up televisit for migraine and headache. Patient reports she is doing a little bit better in terms of her migraine attacks, as she changed jobs. 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 She has not started propranolol or Zofran yet, states she just is not good at picking her medications up at the local pharmacy. She is still open to trying the propranolol Zofran, she is curious if these will effect her ability to undergo general anesthesia, as possibly in May she may need to undergo a follow-up to a uterine LEEP procedure. She is currently having 3 migraine attacks per month lasting 2-4 days each. She still finds the naratriptan to be very helpful. Patient denies any interval medical history changes. 05/30/2024 MRI brain without contrast was reassuring, there were no acute intracranial findings. Patient reports overall her headache burden has decreased. Has been having approx 1 migraine day per week. She did have one more severe migraine which lasted 3 days, and for the 1st time was a/w vomiting. Her migraine attacks are often associated with nausea. She started Naratriptan 2.5mg tab, which works well. However when she had the more severe prolonged migraine, the naratriptan did not work as well. She has not been taking Tylenol or an NSAID with the triptan. Started Riboflavin and Magnesium- tolerating well. Tried Topiramate, however stopped it as it caused taste change, intolerable. 05/01/2024 Initial HPI: Pt reports she has always had headaches. She has 3 headache sub-types. PMH and ROS are notable for:? General: fatigue, h/o alcoholism w/o complication- 2 bottles a wine a night x's 1 yr- stopped 2 yrs ago. 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 Family planning: none ta this time Pertinent denials include: History of concussion/head injury, Respiratory d/o, CV disease, Clotting or hematology d/o, Endocrine d/o, metabolic d/o, History of seizure, GI d/o, Constipation, Family history of migraine or other headache disorder Lifestyle considerations: Sleep routine: Usual bedtime: 9-10pm and wake-up time: 6-6:30am, may wake up at 3am and go back to sleep. Sleep difficulties: Denies Endorses: Fatigue, h/o bruxism. Restless leg- urge to move, creepy crawling sensation, was nightly when stressed, but better now. 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 Types of headache disorders: 3 #1 Typical headache characteristics: Prodrome symptoms: none Aura: none Pain intensity: mild Location, quality, characteristics: Usually wakes up with this headache. Burning forehead but also holocranial. Associated symptoms: photophobia, phonophobia, nausea, fatigue, cognitive difficulties, activity intolerance, Postdrome: sometimes may have lingering fatigue Triggers: none Time of day: wakes up with headache Duration and Frequency: varies, maybe twice a week, lasts a few hours. How does headache impact your life? if able, would limit her activities #2 Typical headache characteristics: Prodrome symptoms: none Aura: peripheral vision blurriness Pain intensity: moderate-severe Location, quality, characteristics: Left frontal, feels like she cannot open her eye, pressure/swollen/tingling feeling. Associated symptoms: photophobia, phonophobia, may smell something that is not there, nausea, not right in space dizziness, fatigue, cognitive difficulties, activity intolerance Postdrome: takes longer to recover, feels out of it, confused longer Triggers: stress Time of day: in the afternoon Duration and Frequency: twice a month, lasts a few hours. How does headache impact your life? will need to leave work #3 Typical headache characteristics: Prodrome symptoms: none Aura: rarely the peripheral blurriness or scotoma Pain intensity: moderate- but varies Location, quality, characteristics: Bilateral occipital throbbing Associated symptoms: photophobia, phonophobia, allodynia, nausea, fatigue, cognitive difficulties, activity intolerance, Postdrome: slowly fades Triggers: poor fluid intake, stress, lights, sounds Time of day: No specific time of day Duration and Frequency: varies- can be daily if stressed. How does headache impact your life? not as debilitating as the others. Current acute medication use/interventions: Excedrin- help #3 headache. Sumatriptan 25mg- helps but causes sleepiness. Current preventative medication use: none Non-pharmacological interventions: Ice roller, helps some. PFSH Medical History (Updated 01/31/25 @ 08:50 by SOFIA Barrera) Eczema Migraines Surgical History (Updated 01/31/25 @ 08:10 by Nelly Russo CMA) History of loop electrosurgical excision procedure (LEEP) No pertinent past surgical history Family History Other Mental health disorder Substance abuse Social History (Updated 01/31/25 @ 08:43 by SOFIA Barrera) Household Members: Family Housing: Apartment Are you a primary critical care nurse practitioner to a significant other at home: No Do you presently have visiting nurse or other home services: No Alcohol intake: former Year quit: 2021 e-Cigarette/Vaping Use: Former Use service: No Current occupational status: employed 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 Current occupational exposures/hazards: No Cognitive needs: No Hearing needs: No Vision needs: No Female Reproductive History Menstrual Age of Menarche: 13 Physical Exam Const General: cooperative and no acute distress Orientation/consciousness: patient oriented x3 Resp Effort & Inspection: normal respiratory effort and able to speak in complete sentences Neuro General: patient oriented x3 Cranial nerves: Yes Normal facial strength present Cognition (Neuro): normal cognition Psych Attitude: cooperative Telehealth Telehealth Telehealth Platform: [employer] Location of provider rendering services: practice address Location of patient: address on file Patient Identification confirmed using: Name, : Yes Telehealth method: voice only Patient verbally consented to treatment: Yes Patient verbally consented to billing insurance company: Yes Patient informed of any privacy concerns related to visit: Yes Minutes spent on Phone/Video with Pt.: 16 Assessment & Plan Assessment & Plan (1) Migraine with aura: Code(s): G43.109 - Migraine with aura, not intractable, without status migrainosus Category: Medical Qualifiers: Status migrainosus presence: without status migrainosus Intractability: not intractable Qualified Code(s): G43.109 - Migraine with aura, not intractable, without status migrainosus (2) Left-sided headache: Code(s): R51.9 - Headache, unspecified Category: Medical (3) Nausea: Code(s): R11.0 - Nausea Category: Medical Plan 05/30/2024 MRI brain without contrast was reassuring, there were no acute intracranial findings. For overall headache management: * Optimize good self-care, including but not limited to maintaining a healthy diet, adequate fluid intake, adequate sleep, and engaging in regular physical activity. * Track headaches, especially after any treatment regimen changes. Migraine [email or web address] is one of many headache tracking apps. As patient has had difficulty picking up the previously recommended medications, we will send all her prescription orders to her preferred we will order pharmacy. For acute headache treatment: Discussed importance of taking acute medications at the first sign of headache, however stressed importance of avoiding acute medication overuse (especially with combined headache medications). Continue Naratriptan 2.5mg tab, 1/2 - 1 tab (1.25-2.5mg) at onset of headache, may repeat in 4 hours. Max of 2 tabs (5mg) per 24 hours. She may take naratriptan with an OTC Tylenol 650mg every 4 hours, Ibuprofen (liquigel) 600mg every 6 hours, or Naproxen (liquigel) 440mg every 12 hrs as needed. Again trial ondansetron ODT 4 mg, 1-2 tabs sublingual every 4-6 hours as needed for nausea. For prolonged migraine attack, may use Benadryl 25-50 mg every 6-8 hours as needed to help patient's sleep through migraine attack. Previous acute migraine medication trials: Sumatriptan 25mg- causes fatigue. Acute migraine medication contraindications: None at this time For headache prevention medication: Continue Riboflavin 400mg daily in the morning Continue Magnesium 400mg daily at bedtime Discontinue Topiramate 25mg- not tolerated. Again start Propranolol ER 60 mg daily. Pot at bedtimeential side effects include but are not limited to fatigue, lightheadedness, low blood pressure, low heart rate, asthma/respiratory disease exacerbation, weight gain, hair loss, sexual dysfunction. * Advised to notify her guest relation officer if she is taking the propranolol if surgery is proposed, likely, she would just need to hold this the day of or the night before the procedure. * Advised that when she is taking propranolol for some time, she should not stop this abruptly, as this may cause withdrawal side effects. Previous migraine prevention medication trials: lamotrigine- for bipolar d/o- not helpful for headaches. Topiramate 25 mg= not tolerated, caused intolerable taste changes. Migraine prevention medication contraindications: Caution w/ anti-depressants d/t bipolar d/o, avoid Depakote in female of child bearing age. Pt to follow-up in 6 months or sooner prn. Medications: Changed From propranolol ER 60 mg PO BEDTIME 30 days 30 caps 3RF To propranolol ER 60 mg PO BEDTIME 90 caps 1RF 90 days From ondansetron 4 - 8 mg (1 - 2 x 4 mg) PO Q4-6H 30 days PRN 20 tabs 6RF nausea and vomiting To ondansetron 4 - 8 mg (1 - 2 x 4 mg) PO Q4-6H PRN 60 tabs 6RF nausea and vomiting 90 days From magnesium oxide may hold for loose stools 400 mg PO BEDTIME 30 days 30 tabs 6RF To magnesium oxide may hold for loose stools 400 mg PO BEDTIME 90 tabs 3RF 90 days From naratriptan take 1/2 - 1 tab at onset of headache; if no relief may repeat 1 tab after at least 4 hrs; max = 2 tabs/24 hrs orally PRN; 30 days 12 tabs 6RF migraine headache To naratriptan take 1/2 - 1 tab at onset of headache; if no relief may repeat 1 tab after at least 4 hrs; max = 2 tabs/24 hrs orally PRN; 36 tabs 3RF migraine headache 90 days Refilled riboflavin (vitamin B2) 400 mg PO DAILY 90 tabs 3RF 90 days Coding Level of Care Code Tele Est Pt Level 4 (15009) Diagnoses Migraine with aura and without status migrainosus, not intractable G43.109 Status migrainosus presence: without status migrainosus Intractability: not intractable Left-sided headache R51.9 Nausea R11.0
--- OUTSIDE RECORDS SUMMARY | 2025-01-31 08:22 | XMS_ITS | Encounter Summary ---
Author Organization [facility] Address [address] [place] [address] Phone Care Team Providers Care Captain/Check Airman Name Role Phone Unavailable Primary Care Provider Unavailabl e Encounter Details Date Type Department Care Team (Late st Contact Info) Description 07/01/2013 [place]ation [facility] [place] [address] [place] [address] Family Medicine, Physician [address] [place] [address] Social History Tobacco Use Types Packs/Day Years [...]
== END 2025-01-31 16:20 | disposition home or self-care (01) ==
LOC: HO.HSMS 08:12
PROVIDERS: PCP Nurse Practitioner Family; Visit Provider Nurse Practitioner Family
DX: G43.109 Migraine with aura, not intractable, without status migrainosus (principal); R11.0 Nausea; R51.9 Headache, unspecified
CPT/HCPCS: 98967

== ENCOUNTER → 2025-01-31 08:12 | Outpatient (BNVA) | payer OTHER, SELFPAY | PROVIDERS: PCP Nurse Practitioner Family; Visit Provider Nurse Practitioner Family | DX: G43.109 Migraine with aura, not intractable, without status migrainosus (principal) | CPT/HCPCS: 98967 ==

== ENCOUNTER 2025-06-05 07:28 | Outpatient (AMB) | payer OTHER, SELFPAY ==
--- OUTSIDE RECORDS SUMMARY | 2025-06-05 07:30 | XMS_ITS | Encounter Summary ---
Author Organization [facility] Address [address] [place] [address] Phone Care Team Providers Care Trauma Counsellor Name Role Phone Unavailable Primary Care Provider Unavailabl e Encounter Details Date Type Department Care Team (Late st Contact Info) Description 07/01/2013 Documentation [facility] [place] [address] [place] [address] Family Medicine, Physician [address] [place] [address] Social History Tobacco Use Types Packs/Day Years [...]
--- OUTSIDE RECORDS SUMMARY | 2025-06-05 07:30 | XMS_ITS | Encounter Summary ---
Author Organization [facility] Address [address] [place] [address] Phone Care Team Providers Care Rn Plasma Center Name Role Phone Unavailable Primary Care Provider Unavailabl e Encounter Details Date Type Department Care Team (Late st Contact Info) Description 07/01/2013 [place] [facility] [place] [address] [place] [address] Family Medicine, Physician [address] [place] [address] Social History Tobacco Use Types Packs/Day Years [...]
--- OUTSIDE RECORDS SUMMARY | 2025-06-05 07:30 | XMS_ITS | Encounter Summary ---
Author Organization [facility] Address [address] [place] [address] Phone Care Team Providers Care Angle Shear Operator Name Role Phone Unavailable Primary Care Provider Unavailabl e Encounter Details Date Type Department Care Team (Late st Contact Info) Description 07/23/2013 Documentation [facility] [place] Family Medicine [address] [place] [address] Family Medicine, Physician [address] [place] [address] Social History Tobacco Use Types Packs/Day Years [...]
--- OUTSIDE RECORDS SUMMARY | 2025-06-05 07:30 | XMS_ITS | Encounter Summary ---
Author Organization [facility] Address [address] [place] [address] Phone Care Team Providers Care Customer Advocacy Manager Name Role Phone Unavailable Primary Care Provider Unavailabl e Encounter Details Date Type Department Care Team (Late st Contact Info) Description 07/01/2013 [place] [facility] [place] [address] [place] [address] Family Medicine, Physician [address] [place] [address] Social History Tobacco Use Types Packs/Day Years [...]
--- OUTSIDE RECORDS SUMMARY | 2025-06-05 07:31 | XMS_ITS | Encounter Summary ---
Author Organization [facility] Address [address] [place] [address] Phone Care Team Providers Care Heel Brusher Name Role Phone Unavailable Primary Care Provider Unavailabl e Encounter Details Date Type Department Care Team (Late st Contact Info) Description 07/01/2013 [place]ation [facility] [place] [address] [place] [address] Family Medicine, Physician [address] [place] [address] Social History Tobacco Use Types Packs/Day Years [...]
--- OUTSIDE RECORDS SUMMARY | 2025-06-05 07:31 | XMS_ITS | Clinical Summary ---
Author Organization [facility] Address [address] [place] [id number] Phone Care Team Providers Care Logistics Account Manager Name Role Phone Pcp, Unknown Primary Care Provider Unavailabl e Allergies Active Allergy Reactions Criticality Noted Date Comments Latex 01/04/2022 Medications buPROPion (WELLBUTRIN XL) 300 MG ER 24 hr tablet Take 300 mg by mouth. 04/16/2021 Active dextroamphetami ne-amphetamine (ADDERALL) 20 mg Tab tablet Take 20 mg by mouth. 03/31/2021 Active KURVELO, 28, 0.15-0.03 mg per tablet Take 1 tablet by mouth daily. 11/10/2021 Active levonorgestrel- ethinyl estradiol (LILLOW, 28,) 0.15-0.03 mg per tablet Take by mouth. 12/14/2020 Active hydrOXYzine (VISTARIL) 50 MG capsule TAKE 1 CAPSULE BY MOUTH EVERY 4 HOURS NEEDED FOR ANXIETY 11/10/2021 Active guanFACINE (TENEX) 1 MG tablet Take 1 mg by mouth. 04/16/2021 Active Active Problems No known active problems Social History Tobacco Use Types Packs/Day Years Used Date Smoking Tobacco: Never Assessed Education Answer Date Recorded Are you interested in more education? Not on dillon e 10/22/2022 Are you concerned about learning? Not on file 10/22/2022 No 10/22/2022 No 10/22/2022 Digital Access Answer Date Recorded No 11/22/2022 No 11/22/2022 Reliable internet access at home? Not on file 11/22/2022 Device with a working camera? Not on file Comments Unknown Sex and Gender Information Value Date Recorded Sex Assigned at Not on file Legal Sex Female 11:43 AM EDT Gender Identity Not on file Sexual Orientation Not on file Last Filed Vital Signs Vital Sign Reading Time Taken Comments Blood Pressure 132/84 01/04/2022 2:23 PM EDT Pulse 83 01/04/2022 2:23 PM EDT Temperature 36.4 C (97.5 F) 01/04/2022 2:23 PM EDT Respiratory Rate 16 01/04/2022 2:23 PM EDT Oxygen Saturation 100% 01/04/2022 2:23 PM EDT Inhaled Oxygen Concentration - - Weight 72.6 kg (160 lb) 01/04/2022 2:23 PM EDT Height 175.3 cm (5' 9 ) 01/04/2022 2:23 PM EDT Body Mass Index 23.63 01/04/2022 2:23 PM EDT Plan of Treatment Health Maintenance Due Date Last Done Comments DEPRESSION SCREENING 2008 SMOKING Hx and SMOKELESS TOBACCO SCREENING 2009 HEPATITIS C SCREENING 2014 HIV ONE-TIME SCREENING (18-65 YEARS) 2014 PAP SMEAR 2017 INFLUENZA VACCINE (#1) 2025 9, 07/02/2014, 06/28/2013, Additional history exists COVID-19 VACCINE ( season) 2025 Adult Td,Tdap Booster 09/03/2028 09/03/2018, 007 HIB VACCINES Completed 07/03/1997, 09/24, 1996, Additional history exists HEPATITIS A VACCINES Completed 07/02/2014, 07/02/2014, 06/28/2013, Additional history exists MENINGOCOCCAL VACCINES (ACWY) Completed 07/02/2014, 04/27/2007 MENINGOCOCCAL VACCINES (B) Aged Out N o longer eligible based on patient's age to complete this topic PNEUMOCOCCAL VACCINES (0-49 years) Aged Out No longer eligible based on patient's age to complete this topic Medical Devices Not on file Care Teams Logistics Account Manager Relationship Specialty Start Date End Date Pcp, Unknown PCP - General 12/24/21 Additional Source Comments The information contained in this document represents components of the legal health record. It is not the complete legal health record.[facility]
--- OUTSIDE RECORDS SUMMARY | 2025-06-05 07:31 | XMS_ITS | Encounter Summary ---
Author Organization [facility] Address [address] [place] [address] Phone Care Team Providers Care Sales Center Manager Name Role Phone Unavailable Primary Care Provider Unavailabl e Encounter Details Date Type Department Care Team (Late st Contact Info) Description 09/26/2013 Documentation [facility] [place] [address] [place] [address] Family Medicine, Physician [address] [place] [address] Social History Tobacco Use Types Packs/Day Years [...]
--- OUTSIDE RECORDS SUMMARY | 2025-06-05 07:32 | XMS_ITS | Encounter Summary ---
Author Organization [facility] Address [address] [place] [address] Phone Care Team Providers Care Supplier Development Manager Name Role Phone Unavailable Primary Care Provider Unavailabl e Encounter Details Date Type Department Care Team (Late st Contact Info) Description 07/03/2014 Documentation [facility] [place] Family [place] [address] [place] [address] Family Medicine, Physician [address] [place] [address] Social History Tobacco Use Types Packs/Day Years [...]
--- OUTSIDE RECORDS SUMMARY | 2025-06-05 07:32 | XMS_ITS | Encounter Summary ---
Author Organization [facility] Address [address] [place] [address] Phone Care Team Providers Care Od Grinder Operator Name Role Phone Unavailable Primary Care Provider Unavailabl e Encounter Details Date Type Department Care Team (Late st Contact Info) Description 11/28/2014 [place] [facility] [place] [address] [place] [address] Family Medicine, Physician [address] [place] [address] Social History Tobacco Use Types Packs/Day Years [...]
--- OUTSIDE RECORDS SUMMARY | 2025-06-05 07:32 | XMS_ITS | Encounter Summary ---
Author Organization [facility] Address [address] [place] [address] Phone Care Team Providers Care Armature Inspector Name Role Phone Unavailable Primary Care Provider Unavailabl e Encounter Details Date Type Department Care Team (Late st Contact Info) Description 07/03/2014 [place]ation [facility] [address] [place] [address] Family Medicine, Physician [address] [place] [address] Social History Tobacco Use Types Packs/Day Years [...]
--- OUTSIDE RECORDS SUMMARY | 2025-06-05 07:32 | XMS_ITS | Encounter Summary ---
Author Organization [facility] Address [address] [place] [address] Phone Care Team Providers Care Film Numberer Name Role Phone Unavailable Primary Care Provider Unavailabl e Encounter Details Date Type Department Care Team (Late st Contact Info) Description 07/03/2014 [place] [facility] [place] [address] [place] [address] Family Medicine, Physician [address] [place] [address] Social History Tobacco Use Types Packs/Day Years [...]
--- OUTSIDE RECORDS SUMMARY | 2025-06-05 07:33 | XMS_ITS | Encounter Summary ---
Author Organization [facility] Address [address] [place] [address] Phone Care Team Providers Care Minibus Driver Name Role Phone Unavailable Primary Care Provider Unavailabl e Encounter Details Date Type Department Care Team (Late st Contact Info) Description 05/30/2011 Documentation [facility] [place] [address] [place] [address] Family Medicine, Physician [address] [place] [address] Social History Tobacco Use Types Packs/Day Years [...]
--- OUTSIDE RECORDS SUMMARY | 2025-06-05 07:33 | XMS_ITS | Encounter Summary ---
Author Organization [facility] Address [address] [place] [address] Phone Care Team Providers Care In House Cra Name Role Phone Unavailable Primary Care Provider Unavailabl e Encounter Details Date Type Department Care Team (Late st Contact Info) Description 07/03/2014 Documentation [facility] [place] [address] [place] [address] Family Medicine, Physician [address] [place] [address] Social History Tobacco Use Types Packs/Day Years [...]
--- OUTSIDE RECORDS SUMMARY | 2025-06-05 07:33 | XMS_ITS | Encounter Summary ---
Author Organization [facility] Address [address] [place] [address] Phone Care Team Providers Care Tank Inspector Name Role Phone Unavailable Primary Care Provider Unavailabl e Encounter Details Date Type Department Care Team (Late st Contact Info) Description 05/30/2011 [place] [facility] [place] [address] [place] [address] Family Medicine, Physician [address] [place] [address] Social History Tobacco Use Types Packs/Day Years [...]
--- OUTSIDE RECORDS SUMMARY | 2025-06-05 07:33 | XMS_ITS | Encounter Summary ---
Author Organization [facility] Address [address] [place] [address] Phone Care Team Providers Care Business Account Executive Name Role Phone Unavailable Primary Care Provider Unavailabl e Encounter Details Date Type Department Care Team (Late st Contact Info) Description 05/30/2011 Documentation [facility] [place] [address] [place] [address] Family Medicine, Physician [address] [place] [address] Social History Tobacco Use Types Packs/Day Years [...]
--- OUTSIDE RECORDS SUMMARY | 2025-06-05 07:34 | XMS_ITS | Encounter Summary ---
Author Organization [facility] Address [address] [place] [address] Phone Care Team Providers Care Group Director Experience Name Role Phone Unavailable Primary Care Provider Unavailabl e Encounter Details Date Type Department Care Team (Late st Contact Info) Description 11/10/2015 Documentation [facility] [place] [address] [place] [address] Family Medicine, Physician [address] [place] [address] Social History Tobacco Use Types Packs/Day Years [...]
--- OUTSIDE RECORDS SUMMARY | 2025-06-05 07:34 | XMS_ITS | Encounter Summary ---
Author Organization [facility] Address [address] [place] [address] Phone Care Team Providers Care Book Author Name Role Phone Unavailable Primary Care Provider Unavailabl e Encounter Details Date Type Department Care Team (Late st Contact Info) Description 02/11/2017 Documentation [facility] [place] [address] [place] [address] Family Medicine, Physician [address] [place] [address] Social History Tobacco Use Types Packs/Day Years [...]
--- OUTSIDE RECORDS SUMMARY | 2025-06-05 07:34 | XMS_ITS | Encounter Summary ---
Author Organization [facility] Address [address] [place] [address] Phone Care Team Providers Care Tint Layer Name Role Phone Unavailable Primary Care Provider Unavailabl e Encounter Details Date Type Department Care Team (Late st Contact Info) Description 11/10/2015 [place] [facility] [place] [address] [place] [address] Family Medicine, Physician [address] [place] [address] Social History Tobacco Use Types Packs/Day Years [...]
--- OUTSIDE RECORDS SUMMARY | 2025-06-05 07:34 | XMS_ITS | Clinical Summary ---
Author Organization [facility] Address [address] [place] [address] Phone Care Team Providers Care Upholstery Covers Inspector Name Role Phone Unavailable Primary Care [...] of *Thrombophilia, No family history of *Sudden /[place] under 55, Family history of Obesity, Family [...] 87 01/26/2017 12:00 AM EDT Temperature 36.7 C (98 F) 11/09/2015 12:00 AM EDT Respiratory Rate - [...] 10/01/1997, Additional history exists Influenza Vaccines (#1) 2025 07/02/19 15, 06/28/2013, 06/04/2012, Additional history exists COVID-19 Vaccine ( season) 2025 Hepatitis B Vaccines Completed 1996, 1996, 1996 HIB Vaccines Completed 07/03/1997, 09/24, 1996, Additional history exists IPV Vaccines Completed 03/30/2001, 09/24, 1996, Additional history exists MMR Vaccines Completed 03/30/2001, 03/27/1997 Varicella Vaccines Completed 04/28/2008, 10/01/1997 HPV Vaccines Completed 02/04/2009, 06/28, 04/28/2008 Hepatitis A Vaccines Completed 07/02/2014, 06/28/19 14 Meningococcal Vaccine Completed 07/02/2014, 007 Men B Vaccine Aged Out No longer elig ible based on patient's age to complete this topic Pneumococcal Vaccine Aged Out No long er eligible based on patient's age to complete this topic Procedures * Due to [place] law, this organization might not be sharing sensitive test results. Procedure Name Priority Date/Time Associated Diagnosis Comments CHLAMYDIA AND GONORRHEA, AMPLIFIED Routine 11/10/2015 2:04 PM EDT from Last 3 Months or Most Recently Relevant to Health Maintenance Results * Due to [place] law, this organization might not be sharing sensitive test results. * Chlamydia and Gonorrhoea, Amplified (11/10/2015 2:04 PM EDT) URINE GC AMP PROBE NEGATIVE [facility] Comment: No Neisseria Gonorrhoeae RNA detected in this patient's sample (REFERENCE RANGE/NORMAL VALUE: NOT DETECTED) NOTE: This test uses training project manager-mediated amplification method to detect rRNA from C.Trachomatis [...] without risk of sexual abuse. Consult the [facility] if needed. Contact phone number . Therapeutic failure or success cannot be determined with the Aptima Combo2 assay since nucleic acid may persist following appropriate antimicrobial therapy. The Centers for Disease Control and Prevention (CDC) recommends confirmatory retesting using culture or a different nucleic acid amplification test when positive results occur, if indicated. Testing performed or reported by [facility], a Service of [facility], [facility] [address], [place] [address] CLIA [id number] Kleber Estevez MD, PhD, Shoulder Sawyer URINE CHLAMYDIA AMP PROBE NEGATIVE [facility] Comment: No Chlamydia Trachomatis RNA detected in this patient's sample (REFERENCE RANGE/NORMAL VALUE: NOT DETECTED) 11/10/2015 2:04 PM EDT [facility] - 11/10/2015 2:04 PM EDT URINE CHLAMYDIA GC AMP PROBE us Rosibel Sargent MD LAB MICROBIOLOGY - GENERAL O RDERABLES Final Result [facility] [address] [place] [address], [place] from Last 3 Months or Most Recently Relevant to Health Maintenance
--- OUTSIDE RECORDS SUMMARY | 2025-06-05 07:34 | XMS_ITS | Encounter Summary ---
Author Organization [facility] Address [address] [place] [address] Phone Care Team Providers Care Clinical Neuropsychologist Name Role Phone Unavailable Primary Care Provider Unavailabl e Encounter Details Date Type Department Care Team (Late st Contact Info) Description 06/05/2012 Documentation [facility] [place] [address] [place] [address] Family Medicine, Physician [address] [place] [address] Social History Tobacco Use Types Packs/Day Years [...]
--- OUTSIDE RECORDS SUMMARY | 2025-06-05 07:34 | XMS_ITS | Encounter Summary ---
Author Organization [facility] Address [address] [place] [address] Phone Care Team Providers Care Cargo Broker Name Role Phone Unavailable Primary Care Provider Unavailabl e Encounter Details Date Type Department Care Team (Late st Contact Info) Description 06/05/[address] [facility] [place] Family [place] [address] [place] [address] Family Medicine, Physician [address] [place] [address] Social History Tobacco Use Types Packs/Day Years [...]
--- OUTSIDE RECORDS SUMMARY | 2025-06-05 07:35 | XMS_ITS | Encounter Summary ---
Author Organization [facility] Address [address] [place] [address] Phone Care Team Providers Care Candy Dipper Name Role Phone Unavailable Primary Care Provider Unavailabl e Encounter Details Date Type Department Care Team (Late st Contact Info) Description 02/09/2017 Conversion Encounter [employer] [facility] - [address] [address] Social History Tobacco Use Types Packs/Day Years [...]
[2025-06-05 07:37] VITALS: BP 110/60; BMI 22.9
--- NOTE | 2025-06-05 07:37 | MHC.OFFVIS ---
Vital Signs 06/05/25 07:37 Height 5 ft 9 in Weight 155 lb BMI 22.9 BP 110/60 Intake Visit Reasons: Pap/Colposcopy [employer] Required: No Information Interpreted: non-clinical & clinical Design Engineer Agricultural Equipment: Design Engineer Agricultural Equipment Present (Kayce NORRIS) Accompanied by: Self / Same As Patient Allergies latex Adverse Reaction (Verified 06/05/25 07:45) Rash Is last menstrual period known: Yes Last menstrual period: 05/05/25 HPI Comments Details: Presenting for Pap smear/colposcopy for six-month follow-up post LEEP cone with negative pathology for MEG 2 10/17 Co testing was negative 11/17 ASC-H, colpo biopsy ECC MEG 2, LEEP cone post cone ECC negative pathology [facility] Medical History (Updated 06/05/25 @ 07:55 by Venkata Milton MD) MEG II (cervical intraepithelial neoplasia II) Eczema Migraines Surgical History History of loop electrosurgical excision procedure (LEEP) No pertinent past surgical history Family History Other Mental health disorder Substance abuse Social History Household Members: Family Housing: Apartment Are you a primary medicare compliance auditor to a significant other at home: No Do you presently have visiting nurse or other home services: No Alcohol intake: former Year quit: 2021 e-Cigarette/Vaping Use: Former Use service: No Current occupational status: employed 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 We thoroughly discussed the procedure itself, including its details, alternatives, and all associated risks. This included but not limited to the following complications such as bleeding, infection, and injury to the vagina, bladder, and vessels, as well as the potential need for transfusion with all its associated risks. Subsequently, the patient sign the consent. Pap smear result: History of MEG 2 in 11/17 status post LEEP cone with post cone ECC with negative pathology Urine test in office = Negative Procedure: During the procedure, the following steps were performed: A speculum was inserted, and acetic acid was applied. Colposcopy was conducted, allowing visualization of the transformation zone. Acetowhite lesions were identified at the 5+ 6/7 +11 o'clock position. Cervical biopsies were obtained from the 5+ 6/7 +11 o'clock position, followed by an endocervical curettage (ECC). Vaginoscopy of the upper vagina revealed no evidence of aceto-white lesions. Hemostasis was achieved using Monsel solution, and the patient tolerated the procedure well. Post-Procedure Instructions: The patient was advised to promptly contact the office or the after hours answering service or go to the emergency room if experiencing a temperature exceeding 100.4?F, abdominal pain, nausea/vomiting, or bleeding. Additionally, the patient was instructed to abstain from vaginal intercourse and bathtub use. The patient confirmed understanding of these instructions. Discharge Instructions: The patient was instructed to schedule a follow-up appointment in 2 weeks for further evaluation and management. Please note that this note was generated using a voice recognition program, and errors may have occurred during advance seal delivery system maintainer. [id number] of cervix including upper vagina with biopsy and ECC Procedure code (CPT) selection complete Results AMB Test Urine AMB Test Urine Negative Last Edit by Kayce Ernst CMA on 06/05/25 13:39 Assessment & Plan Assessment & Plan (1) MEG II (cervical intraepithelial neoplasia II): Comment: 10/17 Co testing negative 11/17 ASC-H, colpo biopsy ECC negative MEG 2, LEEP cone with post cone ECC with negative pathology Code(s): N87.1 - Moderate cervical dysplasia Category: Medical Plan: Co testing and colposcopy done, see procedure note Orders: Orders AMB HCG Urine Test Today Z32.02 - Encounter for test, result negative AMB Colposcopy Today N87.1 - Moderate cervical dysplasia Pap Smear Today N87.1 - Moderate cervical dysplasia, Z01.419 - Encounter for gynecological examination (general) (routine) without abnormal findings Surgical Today N87.1 - Moderate cervical dysplasia, Z01.419 - Encounter for gynecological examination (general) (routine) without abnormal findings Coding Level of Care Code Est Pt Level 3 (92851) Procedure Only Diagnoses MEG II (cervical intraepithelial neoplasia II) N87.1 CPT Codes Colposcopy - CPT: 37488-[id number] of cervix including upper vagina with biopsy and ECC ([id number])
== END 2025-06-05 08:08 | disposition home or self-care (01) ==
LOC: HO.HWS 07:28
PROVIDERS: PCP Nurse Practitioner Family; Visit Provider Obstetrics & Gynecology
DX: Z32.02 Encounter for pregnancy test, result negative (principal)
CPT/HCPCS: 57454